=== PATIENT | female | born 1995 | race Caucasian/White ===

== ENCOUNTER 2017-03-04 11:20 | Inpatient (IN) | payer OTHER ==
[2017-03-04] MEDS: Lactated Ringers 1,000 ML IV SCH ×3 (12:00→17:54)
[2017-03-04] MEDS ORDERED: Misoprostol 25 MCG (1/4 of 100 MCG) Tab ONE (12:09)
[2017-03-04] MEDS: Misoprostol 25 MCG (1/4 of 100 MCG) Tab VAG SCH ×2 (12:12→15:23)
[2017-03-04] MEDS ORDERED: Lidocaine 1% 50 ML MDV INJECT ONE (12:19)
[2017-03-04] MEDS ORDERED: Sodium Chloride 0.9% 10 ML Syringe FLUSH PRN (12:19)
[2017-03-04] MEDS ORDERED: Ondansetron 4 MG/2 ML SDV IVPUSH PRN (12:19)
[2017-03-04] MEDS ORDERED: Nalbuphine 20 MG/1 ML Amp IVPUSH PRN (12:19)
--- NOTE | 2017-03-04 12:32 | PCM.LDHP ---
L&D History of Present Illness - General Date of Service: 03/04/17 Admit Problem/Dx: Patient Status Order with Admit Dx/Problem 03/04/17 12:23 Patient Status [ADT] Routine Admission Diagnosis/Problem Admission Diagnosis/Problem Source of Information: Patient History Limitations: Reports: No Limitations - History of Present Illness Introduction:: 21 y/o CATHRYN 03/08/17 EGA 39w3d. Seen in the clinic complaining of decreased movement. Nonstress test nonreactive. Acoustic stimulation was performed still nonreactive. Patient was sent to labor and delivery for nonstress test. NST in labor and delivery more reactivity than in the clinic. Patient is group B strep negative. Patient had been scheduled for induction later today will begin Cytotec today 25 g placed intravaginally at 1215 hrs. Plan Cytotec every 3 hours 10 3 doses and then began Pitocin. Blood type is O+ antibody screen negative hemoglobin hematocrit 07/26/1711.8/38.2 platelets 297, 000 Pap smear -04/03/16 rubella titer immune serology nonreactive hepatitis B surface antigen negative HIV negative GC and chlamydia probe negative on 12/20/16 hemoglobin hematocrit 12.3/36.7 platelets 257,001 hour OB glucose screen 189 and 3 hour fasting 85, 1 hour 159, two-hour 121, 3 hour 174 but the numbers should be fasting 85 1 hour 159 2 are 1793 hour 121. Admit for induction of labor and delivery. Previous delivery 11/28/2011 6 lbs. 15 oz. Improves with: Reports: None Worsens with: Reports: None Associated Symptoms: Reports: N - Related Data Allergies/Adverse Reactions: Allergies Allergy/AdvReac Type Severity Reaction Status Date / Time No Known Allergies Allergy Verified 05/08/16 13:04 Home Medications: Home Meds Clomid 50 mg PO ASDIRECTED 05/08/16 [History] Past Medical History HEENT History: Reports: Impaired Vision Other HEENT History: glasses Genitourinary History: Reports: UTI, Recurrent : 2 Para: 1 (1001) Musculoskeletal History: Reports: Fracture, Other (See Below) Other Musculoskeletal History: Carpal tunnel bilat Neurological History: Reports: Migraines - Past Surgical History HEENT Surgical History: Reports: Myringotomy w Tube(s) Social & Family History - Family History Family Medical History: Noncontributory - Tobacco Use Smoking Status *Q: Never Smoker - Caffeine Use Caffeine Use: Reports: None - Recreational Drug Use Recreational Drug Use: No H&P Review of Systems - Review of Systems: Review Of Systems: See Below General: Reports: No Symptoms HEENT: Reports: No Symptoms Pulmonary: Reports: No Symptoms Cardiovascular: Reports: No Symptoms Gastrointestinal: Reports: No Symptoms Genitourinary: Reports: No Symptoms Musculoskeletal: Reports: No Symptoms Skin: Reports: No Symptoms Psychiatric: Reports: No Symptoms Neurological: Reports: No Symptoms Hematologic/Lymphatic: Reports: No Symptoms Immunologic: Reports: No Symptoms L&D Exam - Exam Exam: See Below - OB Specific Fundal Height In cm: 40 Movement: Active Heart Tones: Present Heart Tones per Min: 135 Heart Rate (FHR) Variability: Moderate (6-25 bmp) Presentation: Vertex - Arreaga Score Arreaga Score Cervix Position: Posterior Arreaga Score Consistency: Soft Arreaga Score Effacement: 31-50% Arreaga Score Dilation: 1-2 cm Arreaga Score Infant's Station: -3 Arreaga Score Total: 4 - Exam General: Alert, Oriented HEENT: Conjunctiva Clear, Mucosa Moist & [place] Neck: Supple, Trachea Midline Lungs: Clear to Auscultation, Normal Respiratory Effort Cardiovascular: Regular Rate, Regular Rhythm GI/Abdominal Exam: Normal Bowel Sounds, Soft, Non-Tender, No Distention, No Abnormal Bruit Genitourinary: Normal external exam, Normal bimanual exam, Normal speculum exam Back Exam: Normal Inspection, Full Range of Motion Extremities: Normal Inspection, Normal Range of Motion, Non-Tender, No Pedal Edema, Normal Capillary Refill Skin: Warm, Dry, Intact Neurological: Reflexes Equal Bilateral Psychiatric: Alert, Normal Affect, Normal Mood - Problem List (1) 39 weeks gestation of SNOMED Code(s): 39769971 ICD Code: Z3A.39 - 39 WEEKS GESTATION OF Status: Acute Current Visit: Yes (2) Decreased movement affecting management of mother, antepartum SNOMED Code(s): 774578495 ICD Code: O36.8190 - DECREASED MOVEMENTS, UNSP TRIMESTER, UNSP Status : Acute Current Visit: Yes Qualifiers: Fetus number: single or unspecified fetus Qualified Code(s): O36.8190 - Decreased movements, unspecified trimester, not applicable or unspecified Problem List Initiated/Reviewed/Updated: No Orders Last 24hrs: Active Orders 24 hr Category Date Time Status Patient Status [ADT] Routine ADT 03/04/17 12:23 Active Activity as Tolerated [RC] PFP Care 03/04/17 12:22 Active Communication Order [RC] ASDIRECTED Care 03/04/17 12:22 Active Heart Tones [RC] ASDIRECTED Care 03/04/17 12:23 Active Notify Provider [RC] PFP Care 03/04/17 12:22 Active Notify Provider [RC] PRN Care 03/04/17 12:22 Active Peripheral IV Care [RC] . DIRECTED Care 03/04/17 12:23 Active Vital Signs [RC] PER UNIT ROUTINE Care 03/04/17 12:22 Active Regular Diet [DIET] Diet 03/04/17 Lunch Active CBC WITH AUTO DIFF [HEME] Stat Lab 03/04/17 12:19 Ordered Lactated Ringers [Ringers, Lactated] 1,000 ml Med 03/04/17 12:30 Active IV ASDIRECTED Misoprostol [Cytotec] Med 03/04/17 12:15 Active 25 mcg VAG Q3H Nalbuphine [Nubain] Med 03/04/17 12:19 Active 10 mg IVPUSH Q2H PRN Ondansetron [Zofran] Med 03/04/17 12:19 Active 4 mg IVPUSH Q4H PRN Oxytocin [Pitocin] 20 unit Med 03/04/17 12:30 Ordered Lactated Ringers [Ringers, Lactated] 1,000 ml IV TITRATE Sodium Chloride 0.9% [Saline Flush] Med 03/04/17 12:19 Active 10 ml FLUSH ASDIRECTED PRN Electronic Heart Tones Ext w TOCO [WOMSER] Oth 03/04/17 12:22 Ordered Routine Electronic Heart Tones Internal [WOMSER] Per Unit Oth 03/04/17 12:22 Ordered Routine Peripheral IV Insertion Adult [OM.PC] Routine Oth 03/04/17 12:22 Ordered Resuscitation Status Routine Resus Stat 03/04/17 12:19 Ordered Medication Orders Lactated Ringer's (Ringers, Lactated) 1,000 mls @ 100 mls/hr IV ASDIRECTED MICHAEL Oxytocin 20 unit/ Lactated (Ringer's) 1,002 mls @ 6.01 mls/hr IV TITRATE MICHAEL; 2 MUNITS/MIN PRN Reason: Protocol Misoprostol (Cytotec) 25 mcg VAG Q3H MICHAEL Stop: 03/04/17 18:16 Nalbuphine HCl (Nubain) 10 mg IVPUSH Q2H PRN PRN Reason: Pain (moderate 4-6) Ondansetron HCl (Zofran) 4 mg IVPUSH Q4H PRN PRN Reason: Nausea/Vomiting Sodium Chloride (Saline Flush) 10 ml FLUSH ASDIRECTED PRN PRN Reason: Keep Vein Open
[2017-03-04] MEDS ORDERED: fentaNYL 100 MCG/2 ML SDV EPIDUR PRN (13:07)
[2017-03-04] MEDS ORDERED: ePHEDrine 50 MG/ML SDV IVPUSH PRN (13:07)
[2017-03-04] MEDS ORDERED: diphenhydrAMINE 50 MG/ML SDV IVPUSH PRN (13:07)
--- NOTE | 2017-03-04 13:14 | PCM.PREANE ---
Preanesthetic Assessment - Anesthesia/Transfusion/Family Hx Anesthesia History: Prior Anesthesia Without Reaction Family History of Anesthesia Reaction: No Transfusion History: No Prior Transfusion(s) - Review of Systems General: No Symptoms Pulmonary: No Symptoms Cardiovascular: No Symptoms Gastrointestinal: No Symptoms Neurological: No Symptoms Other: Reports: None - Physical Assessment Pulse: 87 O2 Sat by Pulse Oximetry: 98 Respiratory Rate: 20 Blood Pressure: 132/82 Temperature: 98.1 F Height: 5 ft 4 in Weight: 109.316 kg ASA Class: 2 Mental Status: Alert & Oriented x3 Airway Class: Mallampati = 1 Dentition: Reports: Normal Dentition Thyro-Mental Finger Breadths: 3 Mouth Opening Finger Breadths: 3 ROM/Head Extension: Full Lungs: Clear to Auscultation, Normal Respiratory Effort Cardiovascular: Regular Rate, Regular Rhythm - Lab Values: Laboratory Last Values WBC 12.54 K/mm3 (3.98-10.04) H 03/04/17 12:45 RBC 3.87 M/mm3 (3.98-5.22) L 03/04/17 12:45 Hgb 11.9 gm/L (11.2-15.7) 03/04/17 12:45 Hct 35.6 % (34.1-44.9) 03/04/17 12:45 MCV 92.0 fl (79.4-94.8) 03/04/17 12:45 MCH 30.7 pg (25.6-32.2) 03/04/17 12:45 MCHC 33.4 g/dl (32.2-35.5) 03/04/17 12:45 RDW Std Deviation 46.1 fL (36.4-46.3) 03/04/17 12:45 Plt Count 200 K/mm3 (182-369) 03/04/17 12:45 MPV 11.1 fl (9.4-12.3) 03/04/17 12:45 Neut % (Auto) 74.9 % (34.0-71.1) H 03/04/17 12:45 Lymph % (Auto) 13.8 % (19.3-51.7) L 03/04/17 12:45 [place] % (Auto) 8.5 % (4.7-12.5) 03/04/17 12:45 Eos % (Auto) 2.2 (0.7-5.8) 03/04/17 12:45 Baso % (Auto) 0.2 % (0.1-1.2) 03/04/17 12:45 Neut # (Auto) 9.41 K/mm3 (1.56-6.13) H 03/04/17 12:45 Lymph # (Auto) 1.73 K/mm3 (1.18-3.74) 03/04/17 12:45 [place] # (Auto) 1.06 K/mm3 (0.24-0.36) H 03/04/17 12:45 Eos # (Auto) 0.27 K/mm3 (0.04-0.36) 03/04/17 12:45 Baso # (Auto) 0.02 K/mm3 (0.01-0.08) 03/04/17 12:45 - Allergies Allergies/Adverse Reactions: Allergies Allergy/AdvReac Type Severity Reaction Status Date / Time No Known Allergies Allergy Verified 05/08/16 13:04 - Blood Blood Available: No - Acknowledgements Anesthesia Type Planned: Epidural Pt an Appropriate Candidate for the Planned Anesthesia: Yes Alternatives and Risks of Anesthesia Discussed w Pt/Guardian: Yes Pt/Guardian Understands and Agrees with Anesthesia Plan: Yes PreAnesthesia Questionnaire HEENT History: Reports: Impaired Vision Other HEENT History: glasses Cardiovascular History: Reports: None Respiratory History: Reports: None Genitourinary History: Reports: UTI, Recurrent : 2 (39 weeks plus 3) Para: 1 Musculoskeletal History: Reports: Fracture, Other (See Below) Other Musculoskeletal History: Carpal tunnel bilat Neurological History: Reports: Migraines - Past Surgical History HEENT Surgical History: Reports: Myringotomy w Tube(s) GI Surgical History: Reports: Cholecystectomy, Colonoscopy, EGD Oncologic Surgical History: Reports: Biopsy of Breast - History Comment History Comment: vits - SUBSTANCE USE Smoking Status *Q: Never Smoker Tobacco Use Within Last Twelve Months: No Second Hand Smoke Exposure: No Days Per Week of Alcohol Use: 0 (occasional prior to preg) Recreational Drug Use History: No - HOME MEDS Home Medications: Home Meds Clomid 50 mg PO ASDIRECTED 05/08/16 [History] - CURRENT (IN HOUSE) MEDS Current Meds: Current Medications Diphenhydramine HCl (Benadryl) 25 mg IVPUSH Q6H PRN PRN Reason: pruritis Ephedrine Sulfate (Ephedrine Sulfate) 5 mg IVPUSH ASDIRECTED PRN PRN Reason: Hypotension Fentanyl (Sublimaze) 100 mcg EPIDUR Q3H PRN PRN Reason: Pain Fentanyl/Bupivacaine HCl (Fentanyl/Bupivacaine/Ns 2 Mcg-0.125% 100 Ml) 100 ml EPIDUR ASDIRECTED MICHAEL Lactated Ringer's (Ringers, Lactated) 1,000 mls @ 100 mls/hr IV ASDIRECTED MICHAEL Oxytocin 20 unit/ Lactated (Ringer's) 1,002 mls @ 6.01 mls/hr IV TITRATE MICHAEL; 2 MUNITS/MIN PRN Reason: Protocol Misoprostol (Cytotec) 25 mcg VAG Q3H MICHAEL Stop: 03/04/17 18:16 Nalbuphine HCl (Nubain) 10 mg IVPUSH Q2H PRN PRN Reason: Pain (moderate 4-6) Ondansetron HCl (Zofran) 4 mg IVPUSH Q4H PRN PRN Reason: Nausea/Vomiting Sodium Chloride (Saline Flush) 10 ml FLUSH ASDIRECTED PRN PRN Reason: Keep Vein Open Discontinued Medications Lidocaine HCl (Xylocaine 1%) 50 ml INJECT ONETIME ONE Stop: 03/04/17 12:20 Misoprostol (Cytotec) Confirm Administered Dose 25 mcg .ROUTE .STK-MED ONE Stop: 03/04/17 12:10 Last Admin: 03/04/17 12:26 Dose: Not Given
[2017-03-04] MEDS ORDERED: Bupivacaine/fentaNYL/NS 100 ML Bag EPIDUR SCH (13:15)
[2017-03-04] MEDS ORDERED: Diphtheria,Pertussis(Acell),Tetanus Vaccine 0.5 ML SDV IM ONE (14:44)
[2017-03-04] MEDS ORDERED: FLU Vacc QS 2017-18 (6mos UP)/PF 60 MCG/0.5 ML Syringe IM ONE (15:00)
--- NOTE | 2017-03-04 16:11 | PCM.SN ---
- Free Text/Narrative Note: Cervix 3 cm, 70% effaced, soft, posterior, vertex-1. Cat I FHR. Amniotomy performed at 1606 clear fluid. Cat I FHR after amniotomy.
--- NOTE | 2017-03-04 22:00 | PCM.SN ---
- Free Text/Narrative Note: Right nigel-lateral rim 9 cm, 100%, soft, anterior, vertex 0 station to 1+ station. Cat I FHR. Contractions q1-3 minutes.
[2017-03-04] MEDS ORDERED: Bupivacaine 0.25% 10 ML SDV ONE (22:22)
--- NOTE | 2017-03-04 22:35 | PCM.DEL ---
L & D Note - General Info Date of Service: 03/04/17 Mother's Due Date: 03/08/17 - Delivery Note Labor: Augmented by ARM Cervical Ripening Method: Misoprostil (25 g 23 hours part.) Delivery Outcome: Livebirth (Male liveborn 2221 hrs. Saturday03/04/17 PARVEEN Apgars 8/9 at one and 5 minutes respectively weight 30/8/30 grams 8 pounds 7.1 ounces) Delivery Method: Spontaneous Vaginal Delivery-Single Infant Delivery Mode: Spontaneous Presentation: Left Occiput Anterior (PARVEEN) Nuchal Cord: None Prep: Povidone-Iodine (Betadine Anesthesia Type: Epidural Amniotic Fluid Description: Clear Episiotomy Type: None Laceration: None Placenta: Intact, Spontaneous (Placenta Willian spontaneous 2224 hrs. examined intact discarded central cord insertion) Cord: 3 Vessels Estimated Blood Loss: 200 Resuscitation Needed: No [place]: Suctioned, Bulb Syringe, Stimulated, Warmed, [place] Used, Warmer Used Provider: Rosales Yañez Score 1 min: 8 Score 5 min: 9 - Patient Data Vitals - Most Recent: Last Vital Signs Temp 98.1 F 03/04/17 13:15 Pulse 87 03/04/17 13:15 Resp 20 03/04/17 13:15 BP 132/82 03/04/17 13:15 Pulse Ox 98 03/04/17 13:15 Weight - Most Recent: 241 lb Lab Results Last 24 Hours: Laboratory Results - last 24 hr 03/04/17 Range/Units 12:45 WBC 12.54 H (3.98-10.04) K/mm3 RBC 3.87 L (3.98-5.22) M/mm3 Hgb 11.9 (11.2-15.7) gm/L Hct 35.6 (34.1-44.9) % MCV 92.0 (79.4-94.8) fl MCH 30.7 (25.6-32.2) pg MCHC 33.4 (32.2-35.5) g/dl RDW Std Deviation 46.1 (36.4-46.3) fL Plt Count 200 (182-369) K/mm3 MPV 11.1 (9.4-12.3) fl Neut % (Auto) 74.9 H (34.0-71.1) % Lymph % (Auto) 13.8 L (19.3-51.7) % [place] % (Auto) 8.5 (4.7-12.5) % Eos % (Auto) 2.2 (0.7-5.8) Baso % (Auto) 0.2 (0.1-1.2) % Neut # (Auto) 9.41 H (1.56-6.13) K/mm3 Lymph # (Auto) 1.73 (1.18-3.74) K/mm3 [place] # (Auto) 1.06 H (0.24-0.36) K/mm3 Eos # (Auto) 0.27 (0.04-0.36) K/mm3 Baso # (Auto) 0.02 (0.01-0.08) K/mm3 Med Orders - Current: Current Medications Diphenhydramine HCl (Benadryl) 25 mg IVPUSH Q6H PRN PRN Reason: pruritis Ephedrine Sulfate (Ephedrine Sulfate) 5 mg IVPUSH ASDIRECTED PRN PRN Reason: Hypotension Fentanyl (Sublimaze) 100 mcg EPIDUR Q3H PRN PRN Reason: Pain Last Admin: 03/04/17 17:42 Dose: 100 mcg Fentanyl/Bupivacaine HCl (Fentanyl/Bupivacaine/Ns 2 Mcg-0.125% 100 Ml) 100 ml EPIDUR ASDIRECTED MICHAEL Last Admin: 03/04/17 17:42 Dose: 100 ml Lactated Ringer's (Ringers, Lactated) 1,000 mls @ 100 mls/hr IV ASDIRECTED MICHAEL Last Admin: 03/04/17 17:54 Dose: 125 mls/hr Oxytocin 20 unit/ Lactated (Ringer's) 1,002 mls @ 6.01 mls/hr IV TITRATE MICHAEL; 2 MUNITS/MIN PRN Reason: Protocol Nalbuphine HCl (Nubain) 10 mg IVPUSH Q2H PRN PRN Reason: Pain (moderate 4-6) Ondansetron HCl (Zofran) 4 mg IVPUSH Q4H PRN PRN Reason: Nausea/Vomiting Sodium Chloride (Saline Flush) 10 ml FLUSH ASDIRECTED PRN PRN Reason: Keep Vein Open Discontinued Medications Diphtheria/Tetanus/Acell Pertussis (Adacel) 0.5 ml IM .ONCE ONE Stop: 03/04/17 14:45 Influenza Virus Vaccine (Pharmacy To Dose - Influenza Vaccine) 1 each IM ONETIME ONE Stop: 03/04/17 14:45 Influenza Virus Vaccine (Flulaval Quad [id number]) 60 mcg IM .ONCE ONE Stop: 03/04/17 15:01 Lidocaine HCl (Xylocaine 1%) 50 ml INJECT ONETIME ONE Stop: 03/04/17 12:20 Misoprostol (Cytotec) Confirm Administered Dose 25 mcg .ROUTE .STK-MED ONE Stop: 03/04/17 12:10 Last Admin: 03/04/17 12:26 Dose: Not Given Misoprostol (Cytotec) 25 mcg VAG Q3H MICHAEL Stop: 03/04/17 18:16 Last Admin: 03/04/17 15:23 Dose: 25 mcg - Problem List & Annotations (1) 39 weeks gestation of SNOMED Code(s): 68121478 Code(s): Z3A.39 - 39 WEEKS GESTATION OF Status: Acute Current Visit: Yes (2) Decreased movement affecting management of mother, antepartum SNOMED Code(s): 674145400 Code(s): O36.8190 - DECREASED MOVEMENTS, UNSP TRIMESTER, UNSP Status : Acute Current Visit: Yes Qualifiers: Fetus number: single or unspecified fetus Qualified Code(s): O36.8190 - Decreased movements, unspecified trimester, not applicable or unspecified (3) Encounter for full-term uncomplicated delivery SNOMED Code(s): 84925053 Code(s): O80 - ENCOUNTER FOR FULL-TERM UNCOMPLICATED DELIVERY Status: Acute Current Visit: Yes - Problem List Review Problem List Initiated/Reviewed/Updated: No - My Orders Last 24 Hours: My Active Orders 03/04/17 12:19 Nalbuphine [Nubain] 10 mg IVPUSH Q2H PRN Ondansetron [Zofran] 4 mg IVPUSH Q4H PRN Sodium Chloride 0.9% [Saline Flush] 10 ml FLUSH ASDIRECTED PRN Resuscitation Status Routine 03/04/17 12:22 Activity as Tolerated [RC] PFP Communication Order [RC] ASDIRECTED Notify Provider [RC] PFP Notify Provider [RC] PRN Vital Signs [RC] PER UNIT ROUTINE Electronic Heart Tones Ext w TOCO [WOMSER] Routine Electronic Heart Tones Internal [WOMSER] Per Unit Routine Peripheral IV Insertion Adult [OM.PC] Routine 03/04/17 12:23 Patient Status [ADT] Routine Heart Tones [RC] ASDIRECTED Peripheral IV Care [RC] Q2HR 03/04/17 12:30 Lactated Ringers [Ringers, Lactated] 1,000 ml IV ASDIRECTED Oxytocin [Pitocin] 20 unit Lactated Ringers [Ringers, Lactated] 1,000 ml IV TITRATE 03/04/17 14:45 Vaccines to be Administered [RC] PER UNIT ROUTINE 03/04/17 Lunch Regular Diet [DIET]
[2017-03-04] MEDS ORDERED: Acetaminophen 325 MG Tab PO PRN (22:39)
[2017-03-04] MEDS ORDERED: Benzocaine/Menthol 20%-0.5% Spray 56 GM Canister TOP PRN (22:39)
[2017-03-04] MEDS ORDERED: Witch Hazel Medicated Pads 100/Jar TOP PRN (22:39)
[2017-03-04] MEDS ORDERED: Docusate Sodium 100 MG Cap PO PRN (22:39)
[2017-03-04] MEDS ORDERED: Lanolin 100% Cream 7 GM Tube TOP PRN (22:39)
[2017-03-04] MEDS: Ibuprofen 600 MG Tab PO PRN (23:46)
[2017-03-05] MEDS: Misoprostol 25 MCG (1/4 of 100 MCG) Tab VAG SCH (02:24)
[2017-03-05] MEDS: Ibuprofen 600 MG Tab PO PRN ×2 (06:58→15:07)
[2017-03-05] MEDS: Prenatal Multivitamin with Calcium/Folic Acid/Iron Tab PO SCH (09:53)
--- NOTE | 2017-03-05 10:42 | PCM.SN ---
- Free Text/Narrative Note: day 1 Afebrile, chest clear. No abnormal heart sounds. Abdomen is soft, uterus involuting normally at U -1. No heavy vaginal bleeding. No leg cramping. Probably home tomorrow.
--- NOTE | 2017-03-05 11:46 | PCM48HPAN ---
Post Anesthesia Note - EVALUATION WITHIN 48HRS OF ANESTHETIC Vital Signs in Normal Range: Yes Patient Participated in Evaluation: Yes Respiratory Function Stable: Yes Airway Patent: Yes Cardiovascular Function Stable: Yes Hydration Status Stable: Yes Pain Control Satisfactory: Yes Nausea and Vomiting Control Satisfactory: Yes Mental Status Recovered: Yes - COMMENTS/OBSERVATIONS Free Text/Narrative:: Patient denied any headaches, residual numbness/ tingling to LE, or back pain.
[2017-03-06 06:26] VITALS: BP 119/68
[2017-03-06] MEDS: Prenatal Multivitamin with Calcium/Folic Acid/Iron Tab PO SCH (10:10)
[2017-03-06] MEDS: Ibuprofen 600 MG Tab PO PRN (10:10)
--- NOTE | 2017-03-06 10:11 | PCM.SN ---
- Free Text/Narrative Note: Post Progress Note PPD # 2 Subjective: Doing well overall. Ambulating without difficulty. Lochia minimal. Voiding without difficulty. Tolerating regular diet. Pain controlled with oral medications. Breast feeding with minimal difficulty. Objective: Vitals: Last Vital Signs Temp 36.6 C 03/06/17 03:34 Pulse 83 03/06/17 03:34 Resp 15 03/06/17 03:34 BP 119/68 03/06/17 03:34 Pulse Ox 99 03/06/17 03:34 Physical Exam General: Alert and oriented, no acute distress Lungs: Clear to auscultation bilaterally Heart: Regular rate and rhythm Abdomen: Soft, minimal appropriate tenderness, non-distended, fundus midline, nontender, and below the umbilicus Extremities: No edema ASSESSMENT: 29-year-old female G2 P 2002 s/p normal vaginal delivery PPD #2 PLAN: Doing well Breast feeding with minimal difficulty. Assist as needed Lochia minimal. Continue to monitor for appropriate lochia. Continue routine care Anticipate discharge home today Jason Hager MD 10:10 AM 03/06/17
--- NOTE | 2017-03-06 10:32 | PCM.DCSUM1 ---
Discharge Summary - Hospital Course Free Text/Narrative:: Labor: Augmented by ARM Cervical Ripening Method: Misoprostil (25 g 23 hours part.) Delivery Outcome: Livebirth (Male liveborn 2221 hrs. Saturday03/04/17 PARVEEN Apgars 8/9 at one and 5 minutes respectively weight 30/8/30 grams 8 pounds 7.1 ounces) Infant Delivery Method: Spontaneous Vaginal Delivery-Single Infant Delivery Mode: Spontaneous Presentation: Left Occiput Anterior (PARVEEN) Nuchal Cord: None Prep: Povidone-Iodine (Betadine Anesthesia Type: Epidural Amniotic Fluid Description: Clear Episiotomy Type: None Laceration: None Placenta: Intact, Spontaneous (Placenta Willian spontaneous 4 hrs. examined intact discarded central cord insertion) Cord: 3 Vessels Estimated Blood Loss: 200 Resuscitation Needed: No [place]: Suctioned, Bulb Syringe, Stimulated, Warmed, [place] Used, Warmer Used Provider: Rosales Yañez Score 1 min: 8 Score 5 min: 9 HPI Initial Comments: Labor: Augmented by ARM Cervical Ripening Method: Misoprostil (25 g 23 hours part.) Delivery Outcome: Livebirth (Male liveborn 2221 hrs. Saturday03/04/17 PARVEEN Apgars 8/9 at one and 5 minutes respectively weight 30/8/30 grams 8 pounds 7.1 ounces) Infant Delivery Method: Spontaneous Vaginal Delivery-Single Infant Delivery Mode: Spontaneous Presentation: Left Occiput Anterior (PARVEEN) Nuchal Cord: None Prep: Povidone-Iodine (Betadine Anesthesia Type: Epidural Amniotic Fluid Description: Clear Episiotomy Type: None Laceration: None Placenta: Intact, Spontaneous (Placenta Willian spontaneous 4 hrs. examined intact discarded central cord insertion) Cord: 3 Vessels Estimated Blood Loss: 200 Resuscitation Needed: No [place]: Suctioned, Bulb Syringe, Stimulated, Warmed, [place] Used, Warmer Used Provider: Rosales Yañez Score 1 min: 8 Score 5 min: 9 Brief History: Labor: Augmented by ARM. Cervical Ripening Method: Misoprostil ( 25 g 23 hours part.). Delivery Outcome: Livebirth (Male liveborn 2221 hrs. Saturday03/04/17 PARVEEN Apgars 8/9 at one and 5 minutes respectively weight 30/8/30 grams 8 pounds 7.1 ounces). Infant Delivery Method: Spontaneous Vaginal Delivery-Single. Delivery Mode: Spontaneous. Presentation: Left Occiput Anterior (PARVEEN). Nuchal Cord: None. Prep: Povidone-Iodine (Betadine. Anesthesia Type: Epidural. Amniotic Fluid Description: Clear. Episiotomy Type : None. Laceration: None. Placenta: Intact, Spontaneous (Placenta Willian spontaneous 2224 hrs. examined intact discarded central cord insertion). Cord: 3 Vessels. Estimated Blood Loss: 200. Resuscitation Needed: No. [place]: Suctioned, Bulb Syringe, Stimulated, Warmed, [place] Used, Warmer Used. Provider: Rosales Yañez. Score 1 min: 8. Score 5 min : 9 - Discharge Data Discharge Date: 03/06/17 Discharge Disposition: Home, Self-Care 01 Condition: Good - Discharge Diagnosis/Problem(s) (1) (normal spontaneous vaginal delivery) SNOMED Code(s): 18165913 ICD Code: O80 - ENCOUNTER FOR FULL-TERM UNCOMPLICATED DELIVERY Status: Acute Current Visit: Yes (2) 39 weeks gestation of SNOMED Code(s): 89799610 ICD Code: Z3A.39 - 39 WEEKS GESTATION OF Status: Acute Current Visit: Yes (3) Decreased movement affecting management of mother, antepartum SNOMED Code(s): 884996376 ICD Code: O36.8190 - DECREASED MOVEMENTS, UNSP TRIMESTER, UNSP Status : Acute Current Visit: Yes Qualifiers: Fetus number: single or unspecified fetus Qualified Code(s): O36.8190 - Decreased movements, unspecified trimester, not applicable or unspecified - Patient Summary/Data Complications: None Consults: None Hospital Course: Labor: Augmented by ARM Cervical Ripening Method: Misoprostil (25 g 23 hours part.) Delivery Outcome: Livebirth (Male liveborn 2221 hrs. Saturday03/04/17 PARVEEN Apgars 8/9 at one and 5 minutes respectively weight 30/8/30 grams 8 pounds 7.1 ounces) Infant Delivery Method: Spontaneous Vaginal Delivery-Single Delivery Mode: Spontaneous Presentation: Left Occiput Anterior (PARVEEN) Nuchal Cord: None Prep: Povidone-Iodine (Betadine Anesthesia Type: Epidural Amniotic Fluid Description: Clear Episiotomy Type: None Laceration: None Placenta: Intact, Spontaneous (Placenta Willian spontaneous 2224 hrs. examined intact discarded central cord insertion) Cord: 3 Vessels Estimated Blood Loss: 200 Resuscitation Needed: No [place]: Suctioned, Bulb Syringe, Stimulated, Warmed, [place] Used, Warmer Used Provider: Rosales Yañez Score 1 min: 8 Score 5 min: 9 Patient was doing well on day #1 and meeting milestones including ambulating, tolerating regular diet, voiding without difficulty and her pain was controlled with oral medications. She continued to do well and was meeting milestones on postoperative day #2. She desired be discharged home on day #2. She will follow up with Dr. Yañez in the office in 2 weeks or earlier as needed for her check. - Patient Instructions Diet: Regular Diet as Tolerated Activity: As Tolerated Activity, Other: Nothing in the vagina for 6 weeks Driving: May Drive Today Showering/Bathing: May Shower, No Tub Bathing/Swimming (For 6 weeks) Notify Provider of: Fever, Increased Pain, Swelling and Redness, Drainage, Nausea and/or Vomiting - Discharge Plan Home Medications: Home Meds PNV95/Ferrous Fumarate/FA [ Vitamin Tablet] 1 tab PO DAILY 03/04/17 [ History] Acetaminophen [Tylenol] 650 mg PO Q4H PRN tablet 03/06/17 [Rx] Benzocaine/Menthol [Dermoplast Pain Relief [place]] 1 spray TOP ASDIRECTED PRN canister 03/06/17 [Rx] Docusate Sodium [Colace] 100 mg PO BID PRN cap 03/06/17 [Rx] Ibuprofen [IJD: Ibuprofen] 600 mg PO Q6H PRN tablet 03/06/17 [Rx] Lanolin [Lansinoh HPA] 1 applic TOP ASDIRECTED PRN tube 03/06/17 [Rx] Witch Zara [Tucks] 1 pad TOP ASDIRECTED PRN pad 03/06/17 [Rx] Patient Handouts: Vaginal Delivery, Home Care Instructions for Mom, Vaginal Delivery, Care After, Pelvic Rest, Care After Vaginal Delivery Referrals: Rosales Yañez MD [Physician] - (Follow-up in 2 weeks for visit. ) - Discharge Summary/Plan Comment DC Time >30 min.: No - Patient Data Vitals - Most Recent: Last Vital Signs Temp 36.6 C 03/06/17 03:34 Pulse 83 03/06/17 03:34 Resp 15 03/06/17 03:34 BP 119/68 03/06/17 03:34 Pulse Ox 99 03/06/17 03:34 Weight - Most Recent: 109.316 kg Med Orders - Current: Current Medications Acetaminophen (Tylenol) 650 mg PO Q4H PRN PRN Reason: mild pain or fever Benzocaine/Menthol (Dermoplast Pain Relief [place]) 0 gm TOP ASDIRECTED PRN PRN Reason: Perineal Comfort Measure Last Admin: 03/04/17 23:45 Dose: 1 canister Docusate Sodium (Colace) 100 mg PO BID PRN PRN Reason: Constipation Last Admin: 03/05/17 18:30 Dose: 100 mg Emollient Ointment (Lansinoh Hpa) 0 gm TOP ASDIRECTED PRN PRN Reason: Sore Nipples Ibuprofen (Motrin) 600 mg PO Q4H PRN PRN Reason: Mild pain or fever Last Admin: 03/06/17 10:10 Dose: 600 mg Prenat Multivit/[place]/Iron/Folic Ac ( Plus Iron) 1 each PO DAILY MICHAEL Last Admin: 03/06/17 10:10 Dose: 1 each Witch Zara (Tucks) 1 pad TOP ASDIRECTED PRN PRN Reason: Hemorrhoid pain Last Admin: 03/04/17 23:45 Dose: 1 tub Discontinued Medications Bupivacaine HCl (Sensorcaine-Mpf 0.25%) 10 ml .ROUTE .STK-MED ONE Stop: 03/04/17 22:23 Diphenhydramine HCl (Benadryl) 25 mg IVPUSH Q6H PRN PRN Reason: pruritis Diphtheria/Tetanus/Acell Pertussis (Adacel) 0.5 ml IM .ONCE ONE Stop: 03/04/17 14:45 Ephedrine Sulfate (Ephedrine Sulfate) 5 mg IVPUSH ASDIRECTED PRN PRN Reason: Hypotension Fentanyl (Sublimaze) 100 mcg EPIDUR Q3H PRN PRN Reason: Pain Last Admin: 03/04/17 17:42 Dose: 100 mcg Fentanyl/Bupivacaine HCl (Fentanyl/Bupivacaine/Ns 2 Mcg-0.125% 100 Ml) 100 ml EPIDUR ASDIRECTED MICHAEL Last Admin: 03/04/17 17:42 Dose: 100 ml Lactated Ringer's (Ringers, Lactated) 1,000 mls @ 100 mls/hr IV ASDIRECTED MICHAEL Last Admin: 03/04/17 17:54 Dose: 125 mls/hr Oxytocin 20 unit/ Lactated (Ringer's) 1,002 mls @ 6.01 mls/hr IV TITRATE MICHAEL; 2 MUNITS/MIN PRN Reason: Protocol Last Admin: 03/04/17 22:54 Dose: 2 munits/min, 6.01 mls/hr Influenza Virus Vaccine (Pharmacy To Dose - Influenza Vaccine) 1 each IM ONETIME ONE Stop: 03/04/17 14:45 Influenza Virus Vaccine (Flulaval Quad [id number]) 60 mcg IM .ONCE ONE Stop: 03/04/17 15:01 Lidocaine HCl (Xylocaine 1%) 50 ml INJECT ONETIME ONE Stop: 03/04/17 12:20 Last Admin: 03/05/17 02:24 Dose: Not Given Misoprostol (Cytotec) Confirm Administered Dose 25 mcg .ROUTE .STK-MED ONE Stop: 03/04/17 12:10 Last Admin: 03/04/17 12:26 Dose: Not Given Misoprostol (Cytotec) 25 mcg VAG Q3H MICHAEL Stop: 03/04/17 18:16 Last Admin: 03/05/17 02:24 Dose: Not Given Nalbuphine HCl (Nubain) 10 mg IVPUSH Q2H PRN PRN Reason: Pain (moderate 4-6) Ondansetron HCl (Zofran) 4 mg IVPUSH Q4H PRN PRN Reason: Nausea/Vomiting Sodium Chloride (Saline Flush) 10 ml FLUSH ASDIRECTED PRN PRN Reason: Keep Vein Open *Q Meaningful Use (DIS) - VTE *Q VTE Criteria *Q: - Stroke *Q Stroke Criteria *Q: - AMI *Q AMI Criteria *Q:
== END 2017-03-06 17:30 | disposition home or self-care (01) | DRG 775 ==
LOC: JD.OB 11:20 → JD.OBCHECK 11:20 → JD.OB 12:23 → OBSVTOIN 22:21
PROVIDERS: ADMIT Obstetrics & Gynecology; ATTEND Obstetrics & Gynecology
PROC: 10E0XZZ Delivery of Products of Conception, External Approach (ICD-10-PCS; principal; 2017-03-04)
PROC: 3E0P7VZ Introduction of Hormone into Female Reproductive, Via Natural or Artificial Opening (ICD-10-PCS; 2017-03-04)
PROC: 10907ZC Drainage of Amniotic Fluid, Therapeutic from Products of Conception, Via Natural or Artificial Opening (ICD-10-PCS; 2017-03-04)
PROC: 00HU33Z Insertion of Infusion Device into Spinal Canal, Percutaneous Approach (ICD-10-PCS; 2017-03-04)
PROC: 3E0R3BZ Introduction of Anesthetic Agent into Spinal Canal, Percutaneous Approach (ICD-10-PCS; 2017-03-04)
PROC: 3E0234Z Introduction of Serum, Toxoid and Vaccine into Muscle, Percutaneous Approach (ICD-10-PCS; 2017-03-06)
DX: O36.8130 Decreased fetal movements, third trimester, not applicable or unspecified (principal); Z37.0 Single live birth; Z3A.39 39 weeks gestation of pregnancy; Z23 Encounter for immunization; Z34.93 Encounter for supervision of normal pregnancy, unspecified, third trimester
CPT/HCPCS: 01967; 36415; 51702; 59409; 81003; 85025; 90686; 90715; A9270-GY; G0008; J2590; J3010; J7120

== ENCOUNTER 2018-05-15 06:23 | Day surgery (SDC) | payer OTHER ==
[~2018-05-15 06:23] MED LIST: Lactated Ringers 1,000 ML IV SCH; Lidocaine 1%/Sod Bicarbonate in NS 8.4% 1 ML Syringe IDERM PRN; Sodium Chloride 0.9% 10 ML Syringe FLUSH PRN
[2018-05-15] MEDS ORDERED: Ondansetron 4 MG/2 ML SDV ONE (07:11)
[2018-05-15] MEDS ORDERED: Rocuronium 50 MG/5 ML Vial ONE (07:11)
[2018-05-15] MEDS ORDERED: Propofol 200 MG/20 ML SDV ONE (07:11)
[2018-05-15] MEDS ORDERED: fentaNYL 100 MCG/2 ML SDV ONE (07:11)
[2018-05-15] MEDS ORDERED: Lidocaine 1% 4 ML ONE (07:12)
[2018-05-15] MEDS ORDERED: Midazolam 1 MG/ML 2 ML SDV ONE (07:12)
--- NOTE | 2018-05-15 07:30 | PCM.PREANE ---
Preanesthetic Assessment - Anesthesia/Transfusion/Family Hx Anesthesia History: Prior Anesthesia Without Reaction Family History of Anesthesia Reaction: No Transfusion History: No Prior Transfusion(s) - Review of Systems General: No Symptoms Pulmonary: No Symptoms Cardiovascular: No Symptoms Gastrointestinal: Abdominal Pain (cramping), Nausea Neurological: No Symptoms Other: Reports: None - Physical Assessment NPO Status Date: 05/14/18 NPO Status Time: 00:00 Pulse: 81 O2 Sat by Pulse Oximetry: 100 Respiratory Rate: 16 Blood Pressure: 128/77 Temperature: 36.8 C Height: 1.65 m Weight: 98.293 kg ASA Class: 2 Mental Status: Alert & Oriented x3 Airway Class: Mallampati = 1 Dentition: Reports: Normal Dentition Thyro-Mental Finger Breadths: 3 Mouth Opening Finger Breadths: 3 ROM/Head Extension: Full Lungs: Clear to Auscultation, Normal Respiratory Effort, Decreased Breath Sounds - Allergies Allergies/Adverse Reactions: Allergies Allergy/AdvReac Type Severity Reaction Status Date / Time No Known Allergies Allergy Verified 04/29/18 17:21 - Anesthesia Plan Pre-Op Medication Ordered: None - Acknowledgements Pt an Appropriate Candidate for the Planned Anesthesia: Yes Alternatives and Risks of Anesthesia Discussed w Pt/Guardian: Yes Pt/Guardian Understands and Agrees with Anesthesia Plan: Yes PreAnesthesia Questionnaire HEENT History: Reports: Impaired Vision Other HEENT History: glasses Cardiovascular History: Reports: None Respiratory History: Reports: None Genitourinary History: Reports: UTI, Recurrent [employer]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: Musculoskeletal History: Reports: Fracture, Other (See Below) Other Musculoskeletal History: Carpal tunnel bilat Neurological History: Reports: Migraines - Past Surgical History HEENT Surgical History: Reports: Myringotomy w Tube(s) GI Surgical History: Reports: Cholecystectomy, Colonoscopy, EGD Oncologic Surgical History: Reports: Biopsy of Breast - History Comment History Comment: vits - SUBSTANCE USE Smoking Status *Q: Former Smoker Tobacco Use Within Last Twelve Months: No Second Hand Smoke Exposure: No Days Per Week of Alcohol Use: 1 Number of Drinks Per Day: 0 Total Drinks Per Week: 0 Recreational Drug Use History: No - HOME MEDS Home Medications: Home Meds PNV95/Ferrous Fumarate/FA [ Vitamin Tablet] 1 tab PO DAILY 03/04/17 [ History] Docusate Sodium [Colace] 100 mg PO BID PRN cap 03/06/17 [Rx] Ibuprofen [IJD: Ibuprofen] 600 mg PO Q6H PRN tablet 03/06/17 [Rx] - CURRENT (IN HOUSE) MEDS Current Meds: Current Medications Lactated Ringer's (Ringers, Lactated) 1,000 mls @ 125 mls/hr IV ASDIRECTED MICHAEL Lidocaine/Sodium Bicarbonate (Buffered Lidocaine 1% In Ns 8.4%) 0.25 ml IDERM ONETIME PRN PRN Reason: Prior to IV Start Sodium Chloride (Saline Flush) 10 ml FLUSH ASDIRECTED PRN PRN Reason: Keep Vein Open Discontinued Medications Fentanyl (Sublimaze) Confirm Administered Dose 100 mcg .ROUTE .STK-MED ONE Stop: 05/15/18 07:12 Lidocaine HCl (Xylocaine-Mpf 1%) Confirm Administered Dose 4 mls @ as directed .ROUTE .STK-MED ONE Stop: 05/15/18 07:13 Midazolam HCl (Versed 1 Mg/Ml) Confirm Administered Dose 2 mg .ROUTE .STK-MED ONE Stop: 05/15/18 07:13 Ondansetron HCl (Zofran) Confirm Administered Dose 4 mg .ROUTE .STK-MED ONE Stop: 05/15/18 07:12 Propofol (Diprivan 20 Ml) Confirm Administered Dose 200 mg .ROUTE .STK-MED ONE Stop: 05/15/18 07:12 Rocuronium [place] (Zemuron) Confirm Administered Dose 50 mg .ROUTE .STK-MED ONE Stop: 05/15/18 07:12
[2018-05-15] MEDS ORDERED: ceFAZolin 1 GM Vial ONE (07:41)
[2018-05-15] MEDS ORDERED: Ketorolac 30 MG/ML SDV ONE (07:56)
[2018-05-15] MEDS ORDERED: Oxytocin 10 Units/1 ML SDV ONE (07:58)
[2018-05-15] MEDS ORDERED: Lactated Ringers 1,000 ML ONE (07:59)
--- NOTE | 2018-05-15 08:15 | PCM.OPNOTE ---
- General Post-Op/Procedure Note Date of Surgery/Procedure: 05/15/18 Operative Procedure(s): Suction and sharp curettage for missed Pre Op Diagnosis: Missed Post-Op Diagnosis: Same Anesthesia Technique: General ET Tube Primary Surgeon: Rosales Yañez Anesthesia Provider: Mickey Nunez Fluid Replacement, Intraop: 1,000 EBL in mLs: 45 (Including tissue) Drain/Tube Comments:: None Complications: None Condition: Good Free Text/Narrative:: Patient was transported to the operating room and placed under general anesthesia in the low dorsal lithotomy position and prepared and draped in a sterile fashion. SCDs in place and functioning prior surgery. Ancef 2 g given intravenously prior surgery. Timeout performed confirming name date of and procedure as suction and sharp curettage for missed . Patient had been given Cytotec 200 g tablets 4 at 0500 hrs. The patient having been prepared and draped in sterile fashion examination under anesthesia revealed 7 week size uterus. Uterus sounded to 9 cm. Utilizing #7 and #8 curved cannula suction and sharp curettage performed without difficulty. All tissue sent to pathology for tissue evaluation. No blood transfusions required. Patient transported postanesthesia care unit in satisfactory condition. Blood type is O+ .
[2018-05-15] MEDS ORDERED: Neostigmine Methylsulfate 1 MG/ML 5 ML Syringe ONE (08:16)
[2018-05-15] MEDS ORDERED: HYDROmorphone 0.5 MG/0.5 ML Syringe IVPUSH PRN (08:39)
[2018-05-15] MEDS ORDERED: fentaNYL 100 MCG/2 ML SDV IVPUSH PRN (08:39)
--- NOTE | 2018-05-15 08:41 | PCM.POSTAN ---
POST ANESTHESIA ASSESSMENT - MENTAL STATUS Mental Status: Alert, Oriented - VITAL SIGNS Pulse Rate: 103 SaO2: 98 Resp Rate: 20 Blood Pressure: 128/71 Temperature: 36.9 C - RESPIRATORY Respiratory Status: Respiratory Rate WNL, Airway Patent, O2 Saturation Stable, Supplemental Oxygen - CARDIOVASCULAR CV Status: Pulse Rate WNL, Blood Pressure Stable - GASTROINTESTINAL GI Status: No Symptoms - PAIN Pain Score: 0 - POST OP HYDRATION Hydration Status: Adequate & Stable - OBSERVATIONS Free Text/Narrative:: no anesthesia complications noted
[2018-05-15 11:12] VITALS: BP 127/75
== END 2018-05-15 10:50 | disposition home or self-care (01) ==
LOC: JD.SDS 06:23
PROVIDERS: ATTEND Obstetrics & Gynecology
DX: O02.1 Missed abortion (principal); Z87.891 Personal history of nicotine dependence
CPT/HCPCS: 59820; J0690; J1885; J2250; J2405; J2590; J2704; J2710; J3010; J7120; J2001

== ENCOUNTER 2018-10-25 18:00 | Emergency (ER) | payer OTHER ==
[2018-10-25 18:14] VITALS: BP 130/82
[2018-10-25] MEDS ORDERED: Sodium Chloride 0.9% 10 ML Syringe FLUSH PRN (19:57)
--- NOTE | 2018-10-25 22:31 | EDM.PDOC ---
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 Patient is approximately 8 weeks . 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 Yañez. She has seen him for this thus far and has had a confirmed intrauterine on ultrasound. Patient is a . Patient reports that started with cramping to her lower abdomen earlier today. She states that she then experienced some spotting. The bleeding is nearly resolved upon arrival to the ER. She reports associated symptoms of nausea but no vomiting or low back pain. No urinary symptoms including no dysuria. Patient is currently on progesterone suppositories. blood type is O+. Lower Abdominal Pain Score (Numeric/FACES): 4 - Related Data Allergies Allergy/AdvReac Type Severity Reaction Status Date / Time No Known Allergies Allergy Verified 10/25/18 18:07 Home Meds: Home Meds PNV95/Ferrous Fumarate/FA [ Vitamin Tablet] 1 tab PO DAILY 03/04/17 [ History] Progesterone Suppos. 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: Musculoskeletal History: Reports: Fracture, Other (See Below) Other Musculoskeletal History: Carpal tunnel bilat Neurological History: Reports: Migraines - Past Surgical History HEENT Surgical History: Reports: Myringotomy w Tube(s) GI Surgical History: Reports: Cholecystectomy, Colonoscopy, EGD Oncologic Surgical History: Reports: Biopsy of Breast - History Comment History Comment: vits Social & Family History - Family History Family Medical History: Noncontributory - Tobacco Use Smoking Status *Q: Never Smoker - Caffeine Use Caffeine Use: Reports: Coffee, Soda - Living Situation & Occupation Living situation: Reports: Occupation: Employed ED ROS GENERAL - Review of Systems Review Of Systems: See Below GI/Abdominal: Reports: Abdominal Pain (Lower abdominal cramping), Nausea. Denies: Vomiting : Reports: Pain (Reports pelvic cramping). Denies: Dysuria Musculoskeletal: Denies: Back Pain ED EXAM - Physical Exam Exam: See Below Exam Limited By: No Limitations General Appearance: Alert, WD/WN, No Apparent Distress, Obese Respiratory/Chest: No Respiratory Distress, Lungs Clear, Normal Breath Sounds Cardiovascular: Normal Peripheral Pulses, Regular Rate, Rhythm, No Murmur GI/Abdominal Exam: Normal Bowel Sounds, Soft, Non-Tender Neurological: Alert, Oriented, Normal Cognition Psychiatric: Normal Affect, Normal Mood Skin Exam: Warm, Dry, Normal Color Course - Vital Signs Last Recorded V/S: Last Vital Signs Temp 97.7 F 10/25/18 18:08 Pulse 90 10/25/18 18:08 Resp 16 10/25/18 18:08 BP 130/82 10/25/18 18:08 Pulse Ox 98 10/25/18 18:08 - Orders/Labs/Meds Labs: Laboratory Tests 10/25/18 10/25/18 10/25/18 Range/Units 20:10 20:12 20:12 WBC 12.67 H (3.98-10.04) K/mm3 RBC 4.31 (3.98-5.22) M/mm3 Hgb 13.4 (11.2-15.7) gm/L Hct 39.6 (34.1-44.9) % MCV 91.9 (79.4-94.8) fl MCH 31.1 (25.6-32.2) pg MCHC 33.8 (32.2-35.5) g/dl RDW Std Deviation 40.0 (36.4-46.3) fL Plt Count 270 (182-369) K/mm3 MPV 10.2 (9.4-12.3) fl Neutrophils % (Manual) 68 H (40-60) % Band Neutrophils % 0 (0-10) % Lymphocytes % (Manual) 26 (20-40) % Atypical Lymphs % 0 % Monocytes % (Manual) 5 (2-10) % Eosinophils % (Manual) 1 (0.7-5.8) % Basophils % (Manual) 0 L (0.1-1.2) Platelet Estimate Adequate RBC Morph Comment Normal Sodium 140 (136-145) mEq/L Potassium 3.7 (3.5-5.1) mEq/L Chloride 105 (98-107) mEq/L Carbon Dioxide 24 (21-32) mEq/L Anion Gap 14.7 (5-15) BUN 11 (7-18) mg/dL Creatinine 0.7 (0.55-1.02) mg/dL Est Cr Clr Drug Dosing 107.93 mL/min Estimated GFR (MDRD) > 60 (>60) mL/min BUN/Creatinine Ratio 15.7 (14-18) Glucose 96 (74-106) mg/dL Calcium 9.8 (8.5-10.1) mg/dL Total Bilirubin 0.2 (0.2-1.0) mg/dL AST 12 L (15-37) U/L ALT 16 (14-59) U/L Alkaline Phosphatase 74 (46-116) U/L Total Protein 7.6 (6.4-8.2) g/dl Albumin 3.6 (3.4-5.0) g/dl Globulin 4.0 gm/dL Albumin/Globulin Ratio 0.9 L (1-2) HCG, Quant mIU/mL Urine Color Yellow (Yellow) Urine Appearance Cloudy H (Clear) Urine pH 7.5 (5.0-8.0) Ur Specific [place] 1.020 (1.005-1.030) Urine Protein Negative (Negative) Urine Glucose (UA) Negative (Negative) Urine Ketones Negative (Negative) Urine Occult Blood 1+ H (Negative) Urine Nitrite Negative (Negative) Urine Bilirubin Negative (Negative) Urine Urobilinogen 0.2 (0.2-1.0) Ur Leukocyte Esterase Negative (Negative) Urine RBC 0-5 (0-5) /hpf Urine WBC 0-5 (0-5) /hpf Ur Squamous Epith Cells 5-10 H (0-5) /hpf Amorphous Sediment Moderate H (NOT SEEN) /hpf Urine Bacteria Few (FEW) /hpf Urine Mucus Few (FEW) /hpf 10/25/18 Range/Units 20:12 WBC (3.98-10.04) K/mm3 RBC (3.98-5.22) M/mm3 Hgb (11.2-15.7) gm/L Hct (34.1-44.9) % MCV (79.4-94.8) fl MCH (25.6-32.2) pg MCHC (32.2-35.5) g/dl RDW Std Deviation (36.4-46.3) fL Plt Count (182-369) K/mm3 MPV (9.4-12.3) fl Neutrophils % (Manual) (40-60) % Band Neutrophils % (0-10) % Lymphocytes % (Manual) (20-40) % Atypical Lymphs % % Monocytes % (Manual) (2-10) % Eosinophils % (Manual) (0.7-5.8) % Basophils % (Manual) (0.1-1.2) Platelet Estimate RBC Morph Comment Sodium (136-145) mEq/L Potassium (3.5-5.1) mEq/L Chloride (98-107) mEq/L Carbon Dioxide (21-32) mEq/L Anion Gap (5-15) BUN (7-18) mg/dL Creatinine (0.55-1.02) mg/dL Est Cr Clr Drug Dosing mL/min Estimated GFR (MDRD) (>60) mL/min BUN/Creatinine Ratio (14-18) Glucose (74-106) mg/dL Calcium (8.5-10.1) mg/dL Total Bilirubin (0.2-1.0) mg/dL AST (15-37) U/L ALT (14-59) U/L Alkaline Phosphatase (46-116) U/L Total Protein (6.4-8.2) g/dl Albumin (3.4-5.0) g/dl Globulin gm/dL Albumin/Globulin Ratio (1-2) HCG, Quant 188150.0 mIU/mL Urine Color (Yellow) Urine Appearance (Clear) Urine pH (5.0-8.0) Ur Specific [place] (1.005-1.030) Urine Protein (Negative) Urine Glucose (UA) (Negative) Urine Ketones (Negative) Urine Occult Blood (Negative) Urine Nitrite (Negative) Urine Bilirubin (Negative) Urine Urobilinogen (0.2-1.0) Ur Leukocyte Esterase (Negative) Urine RBC (0-5) /hpf Urine WBC (0-5) /hpf Ur Squamous Epith Cells (0-5) /hpf Amorphous Sediment (NOT SEEN) /hpf Urine Bacteria (FEW) /hpf Urine Mucus (FEW) /hpf Meds: Medications Discontinued Medications Generic Name Dose Route Start Last Admin Trade Name Freq PRN Reason Stop Dose Admin Sodium Chloride 10 ml 10/25/18 19:57 Saline Flush FLUSH ASDIRECTED PRN Keep Vein Open - Radiology Interpretation Free Text/Narrative:: transvaginal ultrasound impression per vrad: there is a single intrauterine gestation. estimated gestational age 8 weeks 3 days. EStimated date of delivery by ultrasound June 03, 2019. - Re-Assessments/Exams Free Text/Narrative Re-Assessment/Exam: 10/25/18 22:27 I reviewed the ultrasound and lab results with the patient. Will discharge home at this time. Recommend follow-up with OB. No intercourse until cleared by OB. Continue current medications and plan of care. Her blood type is O+, program is not indicated. Discharge instructions as documented. Departure - Departure Time of Disposition: 22:29 Disposition: Home, Self-Care 01 Condition: Good Clinical Impression: Threatened , First trimester - Discharge Information *PRESCRIPTION DRUG MONITORING PROGRAM REVIEWED*: No *COPY OF PRESCRIPTION DRUG MONITORING REPORT IN PATIENT AROLDO: No Instructions: First Trimester of , [id number], Threatened Miscarriage, [id number] Referrals: Amanda Gonsales MD [Primary Care Provider] - Rosales Yañez MD [Physician] - Forms: ED Department Discharge Additional Instructions: Follow-up with your OB this week. Continue with your current plan of care. No intercourse or anything vaginally until cleared Ob. Make sure you are drinking plenty of fluids. Please return to the ER should your symptoms change or worsen.
--- NOTE | 2018-10-26 19:35 | US ---
First trimester obstetrical ultrasound: Multiple real-time images were obtained transvaginally. Comparison: Previous obstetrical ultrasounds are available, most recent exam is 10/17/18. Dates: Current ultrasound: [facility] 06/03/19, gestational age 8 weeks 3 days Earliest ultrasound (10/07/18): [facility] 06/03/19, gestational age 8 weeks 3 days Single intrauterine gestational sac is seen. Amniotic fluid volume is normal. Small embryo is identified. Small yolk sac is present. No subchorionic hemorrhage is identified. Maternal ovaries appear within normal limits. Minimal free fluid seen within the cul-de-sac which I believe is incidental. Measurements: [place]-rump length: 1.91 cm - 8 weeks 3 days Heart rate: 176 bpm Impression: 1. Single intrauterine gestation. Dates as noted above. 2. Fluid within the cul-de-sac which I believe is incidental. 3. No complicating process is identified by ultrasound at this time. No etiology identified for the patient's symptoms as noted in the clinical history. Diagnostic code #2 I agree with preliminary report from [facility], finalized on 10/25/18, 11:27 PM Central Time
== END 2018-10-25 22:45 | disposition home or self-care (01) ==
LOC: JD.ED 18:00
DX: O20.0 Threatened abortion (principal); Z3A.08 8 weeks gestation of pregnancy
CPT/HCPCS: 36415; 76817; 76817-26; 80053; 81001; 84702; 85007; 85027; 99283; 99284-25

== ENCOUNTER 2019-05-25 05:28 | Inpatient (IN) | payer OTHER ==
[~2019-05-25 05:28] MED LIST changes: -Lactated Ringers 1,000 ML IV SCH; -Lidocaine 1%/Sod Bicarbonate in NS 8.4% 1 ML Syringe IDERM PRN; +Nalbuphine 10 MG/ML Syringe IVPUSH PRN; +Oxytocin/Lactated Ringers 10 UNIT/1,000 ML BAG IV SCH
[2019-05-25] MEDS ORDERED: Terbutaline 1 MG/ML SDV SUBCUT ONE (06:53)
[2019-05-25] MEDS ORDERED: Terbutaline 1 MG/ML SDV ONE (06:56)
[2019-05-25] MEDS: Lactated Ringers 1,000 ML IV SCH ×5 (07:00→16:13)
[2019-05-25] MEDS ORDERED: Morphine PF 10 MG/10 ML SDV ONE (07:13)
[2019-05-25] MEDS: Oxytocin/Lactated Ringers 10 UNIT/1,000 ML BAG IV SCH ×2 (07:20→18:48)
[2019-05-25] MEDS ORDERED: Nalbuphine 10 MG/ML Syringe IVPUSH PRN (07:22)
[2019-05-25] MEDS ORDERED: Ondansetron 4 MG/2 ML SDV IVPUSH PRN (07:22)
--- NOTE | 2019-05-25 07:29 | PCM.PRNOTE ---
- Free Text/Narrative Note: PROCEDURE NOTE Procedure Date: 05/25/2019 Pre-operative Diagnosis: 1. at 39 0/7 wks gestation 2. Breech Presentation Post-operative Diagnosis: 1. As above s/p successful external cephalic version Anesthesia: None Description of Operation/Procedure: The risks, benefits, indications, potential complications, and alternatives were explained to the patient and informed consent obtained. Patient was placed in the supine position. Ultrasound was used to confirm complete breech presentation and appropriate MIMI. Terbutaline 0.25 mg subcutaneous was given. Hands were placed on the patient's abdomen. The breech was elevated out of the pelvis while clockwise traction was applied to the head. Ultrasound confirmed cephalic presentation as well as cardiac activity. The patient tolerated the procedure well. Complications: The patient tolerated the procedure well and no complications were noted. Plan: Will move forward with induction of labor. See H&P. Any Gerber MD
[2019-05-25] MEDS ORDERED: Lactated Ringers 1,000 ML IV SCH (07:30)
--- NOTE | 2019-05-25 07:34 | PCM.LDHP ---
L&D History of Present Illness - General Date of Service: 05/25/19 Admit Problem/Dx: Patient Status Order with Admit Dx/Problem 05/25/19 05:00 Patient Status [ADT] Routine Admission Diagnosis/Problem Admission Diagnosis/Problem Source of Information: Patient History Limitations: Reports: No Limitations - History of Present Illness Introduction:: Patient is a 24 y/o at 39 0/7 wks who presents for planned ECV and either IOL vs PLTCS. Doing well. Has not felt any large flips or turns. Otherwise doing well. 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: , Spontaneous : 4 Para: 2 LMP (Approximate): Musculoskeletal History: Reports: Fracture, Other (See Below) Other Musculoskeletal History: Carpal tunnel Neurological History: Reports: Migraines - Past Surgical History HEENT Surgical History: Reports: Myringotomy w Tube(s) GI Surgical History: Reports: Cholecystectomy, Colonoscopy, EGD (x3) Female Surgical History: Reports: Breast Biopsy, D&C, Other (See Below) Other Female Surgeries/Procedures: cyst removal of right breast Oncologic Surgical History: Reports: Biopsy of Breast - History Comment History Comment: vits Social & Family History - Family History Family Medical History: Noncontributory - Tobacco Use Smoking Status *Q: Former Smoker Second Hand Smoke Exposure: No - Caffeine Use Caffeine Use: Reports: Coffee, Soda - Alcohol Use Alcohol Use History: No - Recreational Drug Use Recreational Drug Use: No - Living Situation & Occupation Living situation: Reports: Occupation: Employed H&P Review of Systems - Review of Systems: Review Of Systems: See Below General: Reports: No Symptoms Pulmonary: Reports: No Symptoms Cardiovascular: Reports: No Symptoms Gastrointestinal: Reports: No Symptoms Genitourinary: Reports: No Symptoms Musculoskeletal: Reports: No Symptoms Psychiatric: Reports: No Symptoms Neurological: Reports: No Symptoms L&D Exam - Exam Exam: See Below - Vital Signs Weight: 105.687 kg - OB Specific Contraction Intensity: Irritability Movement: Active Heart Tones: Present Heart Tones per Min: 135 Heart Rate (FHR) Variability: Moderate (6-25 bmp) Presentation: Breech - Exam General: Alert, Oriented, Cooperative Lungs: Clear to Auscultation, Normal Respiratory Effort Cardiovascular: Regular Rate, Regular Rhythm GI/Abdominal Exam: Soft, Non-Tender Genitourinary: Normal external exam Extremities: Normal Inspection Skin: Warm, Dry, Intact - Patient Data Lab Results Last 24 hrs: Laboratory Results - last 24 hr 05/25/19 Range/Units 05:35 WBC 12.92 H (3.98-10.04) K/mm3 RBC 4.16 (3.98-5.22) M/mm3 Hgb 12.1 (11.2-15.7) gm/dl Hct 37.4 (34.1-44.9) % MCV 89.9 (79.4-94.8) fl MCH 29.1 (25.6-32.2) pg MCHC 32.4 (32.2-35.5) g/dl RDW Std Deviation 45.6 (36.4-46.3) fL Plt Count 241 (182-369) K/mm3 MPV 10.0 (9.4-12.3) fl Neut % (Auto) 74.4 H (34.0-71.1) % Lymph % (Auto) 14.9 L (19.3-51.7) % [place] % (Auto) 8.7 (4.7-12.5) % Eos % (Auto) 0.9 (0.7-5.8) Baso % (Auto) 0.2 (0.1-1.2) % Neut # (Auto) 9.62 H (1.56-6.13) K/mm3 Lymph # (Auto) 1.93 (1.18-3.74) K/mm3 [place] # (Auto) 1.12 H (0.24-0.36) K/mm3 Eos # (Auto) 0.11 (0.04-0.36) K/mm3 Baso # (Auto) 0.03 (0.01-0.08) K/mm3 Manual Slide Review Normal smear Result Diagrams: 05/25/19 05:35 - Problem List (1) 39 weeks gestation of SNOMED Code(s): 79269871 ICD Code: Z3A.39 - 39 WEEKS GESTATION OF Status: Acute Current Visit: No (2) Breech presentation SNOMED Code(s): 5424455 ICD Code: O32.1XX0 - MATERNAL CARE FOR BREECH PRESENTATION, UNSP Status: Acute Current Visit: Yes Qualifiers: Fetus number: single or unspecified fetus Qualified Code(s): O32.1XX0 - Maternal care for breech presentation, not applicable or unspecified (3) Successful external cephalic version SNOMED Code(s): 24175171 ICD Code: [id number] - Status: Acute Current Visit: Yes Problem List Initiated/Reviewed/Updated: Yes Orders Last 24hrs: Active Orders 24 hr Category Date Time Status Patient Status [ADT] Routine ADT 05/25/19 05:00 Active Activity as Tolerated [RC] PFP Care 05/25/19 05:00 Active Activity as Tolerated [RC] PFP Care 05/25/19 07:22 Ordered Communication Order [RC] ASDIRECTED Care 05/25/19 05:00 Active Communication Order [RC] ASDIRECTED Care 05/25/19 07:22 Ordered Heart Tones [RC] ASDIRECTED Care 05/25/19 07:25 Ordered Notify Provider [RC] PFP Care 05/25/19 05:00 Active Notify Provider [RC] PRN Care 05/25/19 05:00 Active Notify Provider [RC] PRN Care 05/25/19 07:22 Ordered Peripheral IV Care [RC] . DIRECTED Care 05/25/19 05:00 Active Vital Signs [RC] PER UNIT ROUTINE Care 05/25/19 05:00 Active Regular Diet [DIET] Diet 05/25/19 Breakfast Ordered RAPID PLASMA REAGIN,RPR [CHEM] Timed Lab 05/25/19 05:35 Received TYPE AND SCREEN [BBK] Timed Lab 05/25/19 05:35 Received Lactated Ringers [Ringers, Lactated] 1,000 ml Med 05/25/19 05:00 Active IV ASDIRECTED Lactated Ringers [Ringers, Lactated] 1,000 ml Med 05/25/19 07:30 Ordered IV ASDIRECTED Nalbuphine [Nubain] Med 05/25/19 05:00 Active 10 mg IVPUSH Q2H PRN Nalbuphine [Nubain] Med 05/25/19 07:22 Ordered 10 mg IVPUSH Q2H PRN Ondansetron [Zofran] Med 05/25/19 07:22 Ordered 4 mg IVPUSH Q4H PRN Oxytocin/Lactated Ringers [Pitocin in LR 10 Units/1,000 Med 05/25/19 05:00 Active ML] 10 unit in 1,000 ml IV .CONTINUOUS Oxytocin/Lactated Ringers [Pitocin in LR 10 Units/1,000 Med 05/25/19 07:30 Ordered ML] 10 unit in 1,000 ml IV TITRATE Sodium Chloride 0.9% [Saline Flush] Med 05/25/19 05:00 Active 10 ml FLUSH ASDIRECTED PRN Electronic Heart Tones Ext w TOCO [WOMSER] Ot 05/25/19 05:00 Ordered Routine Electronic Heart Tones Ext w TOCO [WOMSER] Oth 05/25/19 07:22 Ordered Routine Electronic Heart Tones Internal [WOMSER] Per Unit Ot 05/25/19 05:00 Ordered Routine Electronic Heart Tones Internal [WOMSER] Per Unit Ot 05/25/19 07:22 Ordered Routine Peripheral IV Insertion Adult [OM.PC] Routine Ot 05/25/19 05:00 Ordered Resuscitation Status Routine Resus Stat 05/25/19 02:45 Ordered Medication Orders Lactated Ringer's (Ringers, Lactated) 1,000 mls @ 100 mls/hr IV ASDIRECTED MICHAEL Last Admin: 05/25/19 07:00 Dose: 100 mls/hr Oxytocin/Lactated Ringer's (Pitocin In Lr 10 Units/1,000 Ml) 10 unit in 1,000 mls @ 500 mls/hr IV .CONTINUOUS MICHAEL Lactated Ringer's (Ringers, Lactated) 1,000 mls @ 100 mls/hr IV ASDIRECTED MICHAEL Oxytocin/Lactated Ringer's (Pitocin In Lr 10 Units/1,000 Ml) 10 unit in 1,000 mls @ 12 mls/hr IV TITRATE MICHAEL; Protocol Nalbuphine HCl (Nubain) 10 mg IVPUSH Q2H PRN PRN Reason: Pain Nalbuphine HCl (Nubain) 10 mg IVPUSH Q2H PRN PRN Reason: Pain Ondansetron HCl (Zofran) 4 mg IVPUSH Q4H PRN PRN Reason: Nausea/Vomiting Sodium Chloride (Saline Flush) 10 ml FLUSH ASDIRECTED PRN PRN Reason: Keep Vein Open Assessment/Plan Comment:: Patient is a 24 y/o at 39 0/7 wks who presents for attempted ECV and then either IOL vs PLTCS ---- * Labs done * Bedside US done and confirms breech presentation. Terbutaline given. ECV done and successful. See note. * Proceed with IOL - begin pitocin * GBS negative, no need for antibiotics * Pain medication per patient preference * Anticipate
--- NOTE | 2019-05-25 12:21 | PCM.PNLD ---
Labor Progress Note - VS & Meds Vital Signs: Last Vital Signs Temp 36.5 C 05/25/19 06:40 Pulse 90 05/25/19 06:40 Resp 16 05/25/19 06:40 BP 133/86 05/25/19 06:40 Pulse Ox Active Medications: Current Medications Lactated Ringer's (Ringers, Lactated) 1,000 mls @ 100 mls/hr IV ASDIRECTED MICHAEL Last Admin: 05/25/19 07:00 Dose: 100 mls/hr Oxytocin/Lactated Ringer's (Pitocin In Lr 10 Units/1,000 Ml) 10 unit in 1,000 mls @ 500 mls/hr IV .CONTINUOUS MICHAEL Lactated Ringer's (Ringers, Lactated) 1,000 mls @ 100 mls/hr IV ASDIRECTED MICHAEL Oxytocin/Lactated Ringer's (Pitocin In Lr 10 Units/1,000 Ml) 10 unit in 1,000 mls @ 12 mls/hr IV TITRATE MICHAEL; Protocol Last Titration: 05/25/19 11:02 Dose: 12 munits/min, 72 mls/hr Nalbuphine HCl (Nubain) 10 mg IVPUSH Q2H PRN PRN Reason: Pain Nalbuphine HCl (Nubain) 10 mg IVPUSH Q2H PRN PRN Reason: Pain Ondansetron HCl (Zofran) 4 mg IVPUSH Q4H PRN PRN Reason: Nausea/Vomiting Sodium Chloride (Saline Flush) 10 ml FLUSH ASDIRECTED PRN PRN Reason: Keep Vein Open Discontinued Medications Morphine Sulfate (Duramorph Pf) Confirm Administered Dose 10 mg .ROUTE .STK-MED ONE Stop: 05/25/19 07:14 Terbutaline Sulfate (Brethine) 0.25 mg SUBCUT ONETIME ONE Stop: 05/25/19 06:54 Last Admin: 05/25/19 07:05 Dose: 0.25 mg Terbutaline Sulfate (Brethine) Confirm Administered Dose 1 mg .ROUTE .STK-MED ONE Stop: 05/25/19 06:57 Last Admin: 05/25/19 07:27 Dose: Not Given - Uterine Contractions Uterine Monitoring Mode: External [place] Contraction Intensity: Mild to Moderate Uterine Resting Tone: Soft - Monitoring Heart Rate (FHR) Baseline: 130 Heart Rate (FHR) Variability: Moderate (6-25 bmp) Accelerations: Present, 15x15 Decelerations: None Strip Review: Category I - Vaginal Exam Dilation (cm): 2-3 Effacement (Percent): 60 Station: -3 Cervical Position: Midposition - Labor Progress (Free Text) Labor Progress: Doing well. On 12 of pitocin. Bedside US confirms still vertex presentation. AROM performed with release of clear fluid. Continue present management
[2019-05-25] MEDS ORDERED: diphenhydrAMINE 50 MG/ML SDV IVPUSH PRN (13:00)
[2019-05-25] MEDS ORDERED: fentaNYL 100 MCG/2 ML SDV EPIDUR PRN (13:00)
[2019-05-25] MEDS ORDERED: fentaNYL/Bupivacaine/NS 2 MCG-0.125% 250 ML EPIDUR PRN (13:00)
[2019-05-25] MEDS ORDERED: ePHEDrine 50 MG/ML SDV IVPUSH PRN (13:00)
--- NOTE | 2019-05-25 13:20 | PCM.PREANE ---
Preanesthetic Assessment - Anesthesia/Transfusion/Family Hx Anesthesia History: Prior Anesthesia Without Reaction Family History of Anesthesia Reaction: No Transfusion History: No Prior Transfusion(s) - Review of Systems General: No Symptoms Pulmonary: No Symptoms Cardiovascular: No Symptoms Gastrointestinal: Abdominal Pain (Uterine contractions), Other (GERD) Neurological: Headache (History of Migraines ) Other: Reports: None (Obesity BMI 40) - Physical Assessment Vital Signs: Last Vital Signs Temp 36.5 C 05/25/19 06:40 Pulse 90 05/25/19 06:40 Resp 16 05/25/19 06:40 BP 133/86 05/25/19 06:40 Pulse Ox Height: 1.63 m Weight: 105.687 kg ASA Class: 2 Mental Status: Alert & Oriented x3 Airway Class: Mallampati = 2 Dentition: Reports: Caries (Black gumline at front two incisors. ) Thyro-Mental Finger Breadths: 3 Mouth Opening Finger Breadths: 3 ROM/Head Extension: Full Lungs: Clear to Auscultation, Normal Respiratory Effort Cardiovascular: Regular Rate, Regular Rhythm - Lab Values: Laboratory Last Values WBC 12.92 K/mm3 (3.98-10.04) H 05/25/19 05:35 RBC 4.16 M/mm3 (3.98-5.22) 05/25/19 05:35 Hgb 12.1 gm/dl (11.2-15.7) 05/25/19 05:35 Hct 37.4 % (34.1-44.9) 05/25/19 05:35 MCV 89.9 fl (79.4-94.8) 05/25/19 05:35 MCH 29.1 pg (25.6-32.2) 05/25/19 05:35 MCHC 32.4 g/dl (32.2-35.5) 05/25/19 05:35 RDW Std Deviation 45.6 fL (36.4-46.3) 05/25/19 05:35 Plt Count 241 K/mm3 (182-369) 05/25/19 05:35 MPV 10.0 fl (9.4-12.3) 05/25/19 05:35 Neut % (Auto) 74.4 % (34.0-71.1) H 05/25/19 05:35 Lymph % (Auto) 14.9 % (19.3-51.7) L 05/25/19 05:35 [place] % (Auto) 8.7 % (4.7-12.5) 05/25/19 05:35 Eos % (Auto) 0.9 (0.7-5.8) 05/25/19 05:35 Baso % (Auto) 0.2 % (0.1-1.2) 05/25/19 05:35 Neut # (Auto) 9.62 K/mm3 (1.56-6.13) H 05/25/19 05:35 Lymph # (Auto) 1.93 K/mm3 (1.18-3.74) 05/25/19 05:35 [place] # (Auto) 1.12 K/mm3 (0.24-0.36) H 05/25/19 05:35 Eos # (Auto) 0.11 K/mm3 (0.04-0.36) 05/25/19 05:35 Baso # (Auto) 0.03 K/mm3 (0.01-0.08) 05/25/19 05:35 Manual Slide Review Normal smear 05/25/19 05:35 Blood Type O POSITIVE 05/25/19 05:35 Gel Antibody Screen Negative 05/25/19 05:35 - Allergies Allergies/Adverse Reactions: Allergies Allergy/AdvReac Type Severity Reaction Status Date / Time No Known Allergies Allergy Verified 05/25/19 07:34 - Acknowledgements Anesthesia Type Planned: Epidural Pt an Appropriate Candidate for the Planned Anesthesia: Yes Alternatives and Risks of Anesthesia Discussed w Pt/Guardian: Yes Pt/Guardian Understands and Agrees with Anesthesia Plan: Yes PreAnesthesia Questionnaire HEENT History: Reports: Impaired Vision Other HEENT History: glasses Cardiovascular History: Reports: None Respiratory History: Reports: None Gastrointestinal History: Reports: GERD Genitourinary History: Reports: UTI, Recurrent 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: , 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 Musculoskeletal History: Reports: Fracture, Other (See Below) Other Musculoskeletal History: Carpal tunnel Neurological History: Reports: Migraines - Past Surgical History HEENT Surgical History: Reports: Myringotomy w Tube(s) GI Surgical History: Reports: Cholecystectomy, Colonoscopy, EGD (x3) Female Surgical History: Reports: Breast Biopsy, D&C, Other (See Below) Other Female Surgeries/Procedures: cyst removal of right breast Oncologic Surgical History: Reports: Biopsy of Breast - History Comment History Comment: vits - SUBSTANCE USE Smoking Status *Q: Former Smoker Tobacco Use Within Last Twelve Months: No Second Hand Smoke Exposure: No Recreational Drug Use History: No - HOME MEDS Home Medications: Home Meds Pnv No.95/Ferrous Fum/Folic AC [ Vitamin Tablet] 1 tab PO DAILY [History] - CURRENT (IN HOUSE) MEDS Current Meds: Current Medications Diphenhydramine HCl (Benadryl) 25 mg IVPUSH Q6H PRN PRN Reason: pruritis Ephedrine Sulfate (Ephedrine Sulfate) 5 mg IVPUSH ASDIRECTED PRN PRN Reason: Hypotension Fentanyl (Sublimaze) 100 mcg EPIDUR Q3H PRN PRN Reason: Pain Fentanyl/Bupivacaine HCl (Fentanyl/Bupivacaine/Ns 2 Mcg-0.125% 250 Ml) 250 ml EPIDUR CONTINUOUS PRN PRN Reason: Pain Lactated Ringer's (Ringers, Lactated) 1,000 mls @ 100 mls/hr IV ASDIRECTED MICHAEL Last Admin: 05/25/19 12:51 Dose: 100 mls/hr Oxytocin/Lactated Ringer's (Pitocin In Lr 10 Units/1,000 Ml) 10 unit in 1,000 mls @ 500 mls/hr IV .CONTINUOUS MICHAEL Lactated Ringer's (Ringers, Lactated) 1,000 mls @ 100 mls/hr IV ASDIRECTED MICHAEL Oxytocin/Lactated Ringer's (Pitocin In Lr 10 Units/1,000 Ml) 10 unit in 1,000 mls @ 12 mls/hr IV TITRATE MICHAEL; Protocol Last Titration: 05/25/19 11:02 Dose: 12 munits/min, 72 mls/hr Nalbuphine HCl (Nubain) 10 mg IVPUSH Q2H PRN PRN Reason: Pain Nalbuphine HCl (Nubain) 10 mg IVPUSH Q2H PRN PRN Reason: Pain Ondansetron HCl (Zofran) 4 mg IVPUSH Q4H PRN PRN Reason: Nausea/Vomiting Sodium Chloride (Saline Flush) 10 ml FLUSH ASDIRECTED PRN PRN Reason: Keep Vein Open Discontinued Medications Morphine Sulfate (Duramorph Pf) Confirm Administered Dose 10 mg .ROUTE .STK-MED ONE Stop: 05/25/19 07:14 Terbutaline Sulfate (Brethine) 0.25 mg SUBCUT ONETIME ONE Stop: 05/25/19 06:54 Last Admin: 05/25/19 07:05 Dose: 0.25 mg Terbutaline Sulfate (Brethine) Confirm Administered Dose 1 mg .ROUTE .STK-MED ONE Stop: 05/25/19 06:57 Last Admin: 05/25/19 07:27 Dose: Not Given
[2019-05-25] MEDS ORDERED: fentaNYL 100 MCG/2 ML SDV ONE (15:18)
--- NOTE | 2019-05-25 16:16 | PCM.SN ---
- Free Text/Narrative Note: Epidural Catheter Assessment: Time: 1500 Returned to evaluate epidural catheter. Carmel has heaviness and tingling in her legs but has not achieved comfort during contractions. Cold used to access epidural level. Good movement noted to bilateral legs. Discussed options with Carmel. Recommended redoing epidural to increase pain control. Carmel is agreeable to replacement of catheter. See OBTV for epidural replacement note.
--- NOTE | 2019-05-25 18:21 | PCM.DEL ---
L & D Note - General Info Date of Service: 05/25/19 - Delivery Note Labor: Induced by ARM, Induced by Oxytocin Delivery Outcome: Livebirth Infant Delivery Method: Spontaneous Vaginal Delivery-Single Infant Delivery Mode: Spontaneous Presentation: Right Occiput Anterior (KAE) Nuchal Cord: None Anesthesia Type: Epidural Amniotic Fluid Description: Clear Episiotomy Type: None Laceration: None Placenta: Intact, Spontaneous Cord: 3 Vessels Estimated Blood Loss: 100 Resuscitation Needed: Yes [place]: Bulb Syringe, Stimulated, Warmed, [place] Used, Warmer Used Score 1 min: 8 Score 5 min: 9 Delivery Comments (Free Text/Narrative):: Patient found to be complete and began pushing. With maternal pushing effort head delivered from an KAE presentation. No nuchal cord present. With gentle downward traction the shoulders and body delivered. Infant placed on maternal abdomen. Cord clamped and cut. Cord blood obtained. Placenta allowed time to separate and expelled intact. Inspection of the perineum showed no laceration - General Info Date of Service: 05/25/19 - Patient Data Weight - Most Recent: 105.687 kg - Problem List & Annotations (1) 39 weeks gestation of SNOMED Code(s): 53846530 Code(s): Z3A.39 - 39 WEEKS GESTATION OF Status: Acute Current Visit: No (2) Breech presentation SNOMED Code(s): 2778901 Code(s): O32.1XX0 - MATERNAL CARE FOR BREECH PRESENTATION, UNSP Status: Acute Current Visit: Yes Qualifiers: Fetus number: single or unspecified fetus Qualified Code(s): O32.1XX0 - Maternal care for breech presentation, not applicable or unspecified (3) Successful external cephalic version SNOMED Code(s): 95803855 Code(s): SXW8412 - Status: Acute Current Visit: Yes (4) (normal spontaneous vaginal delivery) SNOMED Code(s): 99518409, 990102863 Code(s): O80 - ENCOUNTER FOR FULL-TERM UNCOMPLICATED DELIVERY Status: Acute Current Visit: No - Problem List Review Problem List Initiated/Reviewed/Updated: Yes - My Orders Last 24 Hours: My Active Orders 05/25/19 02:45 Resuscitation Status Routine 05/25/19 05:00 Patient Status [ADT] Routine Activity as Tolerated [RC] PFP Communication Order [RC] ASDIRECTED Notify Provider [RC] PFP Notify Provider [RC] PRN Peripheral IV Care [RC] . DIRECTED Vital Signs [RC] PER UNIT ROUTINE Lactated Ringers [Ringers, Lactated] 1,000 ml IV ASDIRECTED Nalbuphine [Nubain] 10 mg IVPUSH Q2H PRN Oxytocin/Lactated Ringers [Pitocin in LR 10 Units/1,000 ML] 10 unit in 1,000 ml IV .CONTINUOUS Sodium Chloride 0.9% [Saline Flush] 10 ml FLUSH ASDIRECTED PRN Electronic Heart Tones Ext w TOCO [WOMSER] Routine Electronic Heart Tones Internal [WOMSER] Per Unit Routine Peripheral IV Insertion Adult [OM.PC] Routine 05/25/19 07:22 Activity as Tolerated [RC] PFP Communication Order [RC] ASDIRECTED Notify Provider [RC] PRN Nalbuphine [Nubain] 10 mg IVPUSH Q2H PRN Ondansetron [Zofran] 4 mg IVPUSH Q4H PRN Electronic Heart Tones Ext w TOCO [WOMSER] Routine Electronic Heart Tones Internal [WOMSER] Per Unit Routine 05/25/19 07:30 Lactated Ringers [Ringers, Lactated] 1,000 ml IV ASDIRECTED Oxytocin/Lactated Ringers [Pitocin in LR 10 Units/1,000 ML] 10 unit in 1,000 ml IV TITRATE 05/25/19 Breakfast Regular Diet [DIET] - Assessment Assessment:: 24 y/o G4 now P3013 PPD#0 from at 39 0/7 wks - Plan Plan:: * Routine cares * Breast feeding * Discharge home in 1-2 days
[2019-05-25] MEDS ORDERED: Benzocaine/Menthol 20%-0.5% Spray 56 GM Canister TOP PRN (18:36)
[2019-05-25] MEDS ORDERED: Witch Hazel Medicated Pads 40/Jar TOP PRN (18:36)
[2019-05-25] MEDS ORDERED: Acetaminophen 325 MG Tab PO PRN (18:36)
[2019-05-25] MEDS ORDERED: Docusate Sodium 100 MG Cap PO PRN (18:36)
[2019-05-26] MEDS: Ibuprofen 600 MG Tab PO PRN ×3 (01:26→20:30)
--- NOTE | 2019-05-26 07:09 | PCM.PNPP ---
- General Info Date of Service: 05/26/19 Functional Status: Reports: Pain Controlled, Tolerating Diet, Ambulating, Urinating - Review of Systems General: Reports: No Symptoms Pulmonary: Reports: No Symptoms Cardiovascular: Reports: No Symptoms Gastrointestinal: Reports: No Symptoms Genitourinary: Reports: No Symptoms Musculoskeletal: Reports: Back Pain Neurological: Reports: No Symptoms - Patient Data Vital Signs - Most Recent: Last Vital Signs Temp 36.5 C 05/25/19 06:40 Pulse 87 05/26/19 03:50 Resp 16 05/26/19 03:50 BP 109/65 05/26/19 03:50 Pulse Ox 98 05/26/19 03:50 Weight - Most Recent: 105.687 kg I&O - Last 24 Hours: Intake & Output 05/25/19 05/26/19 05/26/19 22:59 06:59 14:59 Intake Total 1360 Balance 1360 Lab Results - Last 24 Hours: Laboratory Results - last 24 hr 05/25/19 05/25/19 05/25/19 Range/Units 05:35 05:35 05:35 Manual Slide Review Normal smear RPR Non-reactive (NONREACTIVE) Blood Type O POSITIVE Gel Antibody Screen Negative Med Orders - Current: Current Medications Acetaminophen (Tylenol) 650 mg PO Q4H PRN PRN Reason: mild pain or fever Benzocaine/Menthol ([facility]) 0 gm TOP ASDIRECTED PRN PRN Reason: Perineal Comfort Measure Docusate Sodium (Colace) 100 mg PO BID PRN PRN Reason: Constipation Ibuprofen (Motrin) 600 mg PO Q6H PRN PRN Reason: Mild pain or fever Last Admin: 05/26/19 01:26 Dose: 600 mg Witch Zara (Tucks) 1 pad TOP ASDIRECTED PRN PRN Reason: Perineal Comfort Measure Discontinued Medications Diphenhydramine HCl (Benadryl) 25 mg IVPUSH Q6H PRN PRN Reason: pruritis Ephedrine Sulfate (Ephedrine Sulfate) 5 mg IVPUSH ASDIRECTED PRN PRN Reason: Hypotension Fentanyl (Sublimaze) 100 mcg EPIDUR Q3H PRN PRN Reason: Pain Last Admin: 05/25/19 13:29 Dose: 100 mcg Fentanyl (Sublimaze) Confirm Administered Dose 100 mcg .ROUTE .STK-MED ONE Stop: 05/25/19 15:19 Last Admin: 05/25/19 15:35 Dose: 100 mcg Fentanyl/Bupivacaine HCl (Fentanyl/Bupivacaine/Ns 2 Mcg-0.125% 250 Ml) 250 ml EPIDUR CONTINUOUS PRN PRN Reason: Pain Last Admin: 05/25/19 13:29 Dose: 250 ml Lactated Ringer's (Ringers, Lactated) 1,000 mls @ 100 mls/hr IV ASDIRECTED MICHAEL Last Admin: 05/25/19 16:13 Dose: 100 mls/hr Oxytocin/Lactated Ringer's (Pitocin In Lr 10 Units/1,000 Ml) 10 unit in 1,000 mls @ 500 mls/hr IV .CONTINUOUS MICHAEL Lactated Ringer's (Ringers, Lactated) 1,000 mls @ 100 mls/hr IV ASDIRECTED MICHAEL Oxytocin/Lactated Ringer's (Pitocin In Lr 10 Units/1,000 Ml) 10 unit in 1,000 mls @ 12 mls/hr IV TITRATE MICHAEL; Protocol Last Admin: 05/25/19 18:48 Dose: 250 mls/hr Morphine Sulfate (Duramorph Pf) Confirm Administered Dose 10 mg .ROUTE .[employer]-MED ONE Stop: 05/25/19 07:14 Nalbuphine HCl (Nubain) 10 mg IVPUSH Q2H PRN PRN Reason: Pain Nalbuphine HCl (Nubain) 10 mg IVPUSH Q2H PRN PRN Reason: Pain Ondansetron HCl (Zofran) 4 mg IVPUSH Q4H PRN PRN Reason: Nausea/Vomiting Sodium Chloride (Saline Flush) 10 ml FLUSH ASDIRECTED PRN PRN Reason: Keep Vein Open Terbutaline Sulfate (Brethine) 0.25 mg SUBCUT ONETIME ONE Stop: 05/25/19 06:54 Last Admin: 05/25/19 07:05 Dose: 0.25 mg Terbutaline Sulfate (Brethine) Confirm Administered Dose 1 mg .ROUTE .[employer]-MED ONE Stop: 05/25/19 06:57 Last Admin: 05/25/19 07:27 Dose: Not Given - Infant Interaction Infant Disposition, : in Room with Family Interaction: Holding Feeding: Attempted ; Nursed Fair/Poor Support Person: - Recovery Exam Fundal Tone: Firm Fundal Level: At Umbilicus Fundal Placement: Midline Lochia Amount: Small Lochia Color: Rubra/Red Perineum Description: Intact, Minimal Bruising/Swelling Bladder Status: Voiding Urinary Elimination: Voided - Exam General: Alert, Oriented, Cooperative GI/Abdominal Exam: Soft, Non-Tender Extremities: Normal Inspection Skin: Warm, Dry, Intact - Problem List & Annotations (1) 39 weeks gestation of SNOMED Code(s): 65253319 Code(s): Z3A.39 - 39 WEEKS GESTATION OF Status: Acute Current Visit: No (2) Breech presentation SNOMED Code(s): 8527704 Code(s): O32.1XX0 - MATERNAL CARE FOR BREECH PRESENTATION, UNSP Status: Acute Current Visit: Yes Qualifiers: Fetus number: single or unspecified fetus Qualified Code(s): O32.1XX0 - Maternal care for breech presentation, not applicable or unspecified (3) Successful external cephalic version SNOMED Code(s): 65103336 Code(s): GVS0567 - Status: Acute Current Visit: Yes (4) (normal spontaneous vaginal delivery) SNOMED Code(s): 89583950, 799361492 Code(s): O80 - ENCOUNTER FOR FULL-TERM UNCOMPLICATED DELIVERY Status: Acute Current Visit: No - Problem List Review Problem List Initiated/Reviewed/Updated: Yes - My Orders Last 24 Hours: My Active Orders 05/25/19 18:36 Activity as Tolerated [RC] PER UNIT ROUTINE Vital Signs [RC] 03,09,15,21 Acetaminophen [Tylenol] 650 mg PO Q4H PRN Benzocaine/Menthol [[facility]] See Dose Instructions TOP ASDIRECTED PRN Docusate Sodium [Colace] 100 mg PO BID PRN Ibuprofen [Motrin] 600 mg PO Q6H PRN Witch Zara [Tucks] 1 pad TOP ASDIRECTED PRN Assess Lochia [WOMSER] Per Unit Routine Assess Uterine Involution [WOMSER] Per Unit Routine Breast Pump [WOMSER] Per Unit Routine Heat Therapy [OM.PC] PRN Ice Therapy [OM.PC] Per Unit Routine Perineal Care [OM.PC] Per Unit Routine Peripheral IV Discontinue [OM.PC] Routine Sitz Bath [OM.PC] Per Unit Routine 05/25/19 Dinner Regular Diet [DIET] 05/26/19 18:36 Heat Therapy [OM.PC] PRN - Assessment Assessment:: 24 y/o G4 now P3013 PPD#1 from at 39 0/7 wks - Plan Plan:: * Routine cares * Breast feeding * Discharge home in today vs tomorrow
--- NOTE | 2019-05-26 09:12 | PCM48HPAN ---
Post Anesthesia Note - EVALUATION WITHIN 48HRS OF ANESTHETIC Vital Signs in Normal Range: Yes Patient Participated in Evaluation: Yes Respiratory Function Stable: Yes Airway Patent: Yes Cardiovascular Function Stable: Yes Hydration Status Stable: Yes Pain Control Satisfactory: Yes Nausea and Vomiting Control Satisfactory: Yes Mental Status Recovered: Yes Vital Signs: Last Vital Signs Temp 96.4 F 05/26/19 08:42 Pulse 105 H 05/26/19 08:42 Resp 16 05/26/19 08:42 BP 125/71 05/26/19 08:42 Pulse Ox 99 05/26/19 08:42 - COMMENTS/OBSERVATIONS Free Text/Narrative:: first epidural didn't work. She said second one was good.
--- NOTE | 2019-05-27 07:59 | PCM.PNPP ---
- General Info Date of Service: 05/27/19 Functional Status: Reports: Pain Controlled, Tolerating Diet, Ambulating, Urinating - Review of Systems General: Reports: No Symptoms Pulmonary: Reports: No Symptoms Cardiovascular: Reports: No Symptoms Gastrointestinal: Reports: No Symptoms Genitourinary: Reports: No Symptoms Musculoskeletal: Reports: No Symptoms Neurological: Reports: No Symptoms - Patient Data Vital Signs - Most Recent: Last Vital Signs Temp 36.7 C 05/26/19 15:06 Pulse 73 05/27/19 03:01 Resp 15 05/27/19 03:01 BP 125/77 05/27/19 03:01 Pulse Ox 98 05/27/19 03:01 Weight - Most Recent: 105.687 kg I&O - Last 24 Hours: Intake & Output 05/26/19 05/27/19 05/27/19 22:59 06:59 14:59 Intake Total 120 Balance 120 Med Orders - Current: Current Medications Acetaminophen (Tylenol) 650 mg PO Q4H PRN PRN Reason: mild pain or fever Benzocaine/Menthol ([facility]) 0 gm TOP ASDIRECTED PRN PRN Reason: Perineal Comfort Measure Docusate Sodium (Colace) 100 mg PO BID PRN PRN Reason: Constipation Ibuprofen (Motrin) 600 mg PO Q6H PRN PRN Reason: Mild pain or fever Last Admin: 05/26/19 20:30 Dose: 600 mg Witch Zara (Tucks) 1 pad TOP ASDIRECTED PRN PRN Reason: Perineal Comfort Measure Discontinued Medications Diphenhydramine HCl (Benadryl) 25 mg IVPUSH Q6H PRN PRN Reason: pruritis Ephedrine Sulfate (Ephedrine Sulfate) 5 mg IVPUSH ASDIRECTED PRN PRN Reason: Hypotension Fentanyl (Sublimaze) 100 mcg EPIDUR Q3H PRN PRN Reason: Pain Last Admin: 05/25/19 13:29 Dose: 100 mcg Fentanyl (Sublimaze) Confirm Administered Dose 100 mcg .ROUTE .STK-MED ONE Stop: 05/25/19 15:19 Last Admin: 05/25/19 15:35 Dose: 100 mcg Fentanyl/Bupivacaine HCl (Fentanyl/Bupivacaine/Ns 2 Mcg-0.125% 250 Ml) 250 ml EPIDUR CONTINUOUS PRN PRN Reason: Pain Last Admin: 05/25/19 13:29 Dose: 250 ml Lactated Ringer's (Ringers, Lactated) 1,000 mls @ 100 mls/hr IV ASDIRECTED MICHAEL Last Admin: 05/25/19 16:13 Dose: 100 mls/hr Oxytocin/Lactated Ringer's (Pitocin In Lr 10 Units/1,000 Ml) 10 unit in 1,000 mls @ 500 mls/hr IV .CONTINUOUS MICHAEL Lactated Ringer's (Ringers, Lactated) 1,000 mls @ 100 mls/hr IV ASDIRECTED MICHAEL Oxytocin/Lactated Ringer's (Pitocin In Lr 10 Units/1,000 Ml) 10 unit in 1,000 mls @ 12 mls/hr IV TITRATE MICHAEL; Protocol Last Admin: 05/25/19 18:48 Dose: 250 mls/hr Morphine Sulfate (Duramorph Pf) Confirm Administered Dose 10 mg .ROUTE .STK-MED ONE Stop: 05/25/19 07:14 Nalbuphine HCl (Nubain) 10 mg IVPUSH Q2H PRN PRN Reason: Pain Nalbuphine HCl (Nubain) 10 mg IVPUSH Q2H PRN PRN Reason: Pain Ondansetron HCl (Zofran) 4 mg IVPUSH Q4H PRN PRN Reason: Nausea/Vomiting Sodium Chloride (Saline Flush) 10 ml FLUSH ASDIRECTED PRN PRN Reason: Keep Vein Open Terbutaline Sulfate (Brethine) 0.25 mg SUBCUT ONETIME ONE Stop: 05/25/19 06:54 Last Admin: 05/25/19 07:05 Dose: 0.25 mg Terbutaline Sulfate (Brethine) Confirm Administered Dose 1 mg .ROUTE .STK-MED ONE Stop: 05/25/19 06:57 Last Admin: 05/25/19 07:27 Dose: Not Given - Interaction Infant Disposition, : in Room with Family Interaction: Holding Infant Feeding: Attempted ; Nursed Fair/Poor Support Person: - Recovery Exam Fundal Tone: Firm Fundal Level: At Umbilicus Fundal Placement: Midline Lochia Amount: Small Lochia Color: Rubra/Red Perineum Description: Intact, Minimal Bruising/Swelling Episiotomy/Laceration: None Bladder Status: Voiding Urinary Elimination: Voided - Exam General: Alert, Oriented, Cooperative GI/Abdominal Exam: Soft, Non-Tender Extremities: Normal Inspection Skin: Warm, Dry, Intact - Problem List & Annotations (1) 39 weeks gestation of SNOMED Code(s): 98803405 Code(s): Z3A.39 - 39 WEEKS GESTATION OF Status: Acute Current Visit: No (2) Breech presentation SNOMED Code(s): 3033862 Code(s): O32.1XX0 - MATERNAL CARE FOR BREECH PRESENTATION, UNSP Status: Acute Current Visit: Yes Qualifiers: Fetus number: single or unspecified fetus Qualified Code(s): O32.1XX0 - Maternal care for breech presentation, not applicable or unspecified (3) Successful external cephalic version SNOMED Code(s): 76995602 Code(s): OYL0195 - Status: Acute Current Visit: Yes (4) (normal spontaneous vaginal delivery) SNOMED Code(s): 28193695, 700306307 Code(s): O80 - ENCOUNTER FOR FULL-TERM UNCOMPLICATED DELIVERY Status: Acute Current Visit: No - Problem List Review Problem List Initiated/Reviewed/Updated: Yes - My Orders Last 24 Hours: My Active Orders 05/26/19 18:36 Heat Therapy [OM.PC] PRN 05/27/19 07:57 Ready for Discharge [RC] PER UNIT ROUTINE - Assessment Assessment:: 24 y/o G4 now P3013 PPD#2 from at 39 0/7 wks - Plan Plan:: * Routine cares * Breast feeding * Discharge home today
--- NOTE | 2019-05-27 08:02 | PCM.DCSUM1 ---
Discharge Summary - Discharge Data Discharge Date: 05/27/19 Discharge Disposition: Home, Self-Care 01 Condition: Good - Referral to Home Health Primary Care Physician: Any Gerber MD - Discharge Diagnosis/Problem(s) (1) 39 weeks gestation of SNOMED Code(s): 99385010 ICD Code: Z3A.39 - 39 WEEKS GESTATION OF Status: Acute Current Visit: No (2) Breech presentation SNOMED Code(s): 1555147 ICD Code: O32.1XX0 - MATERNAL CARE FOR BREECH PRESENTATION, UNSP Status: Acute Current Visit: Yes Qualifiers: Fetus number: single or unspecified fetus Qualified Code(s): O32.1XX0 - Maternal care for breech presentation, not applicable or unspecified (3) Successful external cephalic version SNOMED Code(s): 95111017 ICD Code: LRS6026 - Status: Acute Current Visit: Yes (4) (normal spontaneous vaginal delivery) SNOMED Code(s): 55916148, 963597790 ICD Code: O80 - ENCOUNTER FOR FULL-TERM UNCOMPLICATED DELIVERY Status: Acute Current Visit: No - Patient Summary/Data Complications: None Consults: None Recommended Follow-up Testing/Procedures: Follow up in 3 weeks for check Hospital Course: 24 y/o presented at 39 0/7 wks for attempted ECV for breech presentation. This was done and successful. See procedure note. She then had an induction begun with pitocin and then AROM. Progressed well to complete dilation and underwent an uncomplicated . See delivery note. she did well and was discharged home on PPD#2 - Patient Instructions Diet: Regular Diet as Tolerated Activity: As Tolerated Activity, Other: Pelvic rest for 6 weeks Driving: May Drive Today Showering/Bathing: May Shower Showering/Bathing, Other: May bathe Notify Provider of: Fever, Increased Pain, Swelling and Redness, Drainage, Nausea and/or Vomiting - Discharge Plan *PRESCRIPTION DRUG MONITORING PROGRAM REVIEWED*: Not Applicable *COPY OF PRESCRIPTION DRUG MONITORING REPORT IN PATIENT AROLDO: Not Applicable Home Medications: Home Meds Pnv No.95/Ferrous Fum/Folic AC [ Vitamin Tablet] 1 tab PO DAILY [History] Ibuprofen [Motrin] 600 mg PO Q6H PRN tablet 05/26/19 [Rx] Referrals: Any Gerber MD [Primary Care Provider] - (3 weeks for check ) - Discharge Summary/Plan Comment DC Time >30 min.: No - Patient Data Vitals - Most Recent: Last Vital Signs Temp 36.7 C 05/26/19 15:06 Pulse 73 05/27/19 03:01 Resp 15 05/27/19 03:01 BP 125/77 05/27/19 03:01 Pulse Ox 98 05/27/19 03:01 Weight - Most Recent: 105.687 kg I&O - Last 24 hours: Intake & Output 05/26/19 05/27/19 05/27/19 22:59 06:59 14:59 Intake Total 120 Balance 120 Med Orders - Current: Current Medications Acetaminophen (Tylenol) 650 mg PO Q4H PRN PRN Reason: mild pain or fever Benzocaine/Menthol ([facility]) 0 gm TOP ASDIRECTED PRN PRN Reason: Perineal Comfort Measure Docusate Sodium (Colace) 100 mg PO BID PRN PRN Reason: Constipation Ibuprofen (Motrin) 600 mg PO Q6H PRN PRN Reason: Mild pain or fever Last Admin: 05/26/19 20:30 Dose: 600 mg Witch Zara (Tucks) 1 pad TOP ASDIRECTED PRN PRN Reason: Perineal Comfort Measure Discontinued Medications Diphenhydramine HCl (Benadryl) 25 mg IVPUSH Q6H PRN PRN Reason: pruritis Ephedrine Sulfate (Ephedrine Sulfate) 5 mg IVPUSH ASDIRECTED PRN PRN Reason: Hypotension Fentanyl (Sublimaze) 100 mcg EPIDUR Q3H PRN PRN Reason: Pain Last Admin: 05/25/19 13:29 Dose: 100 mcg Fentanyl (Sublimaze) Confirm Administered Dose 100 mcg .ROUTE .STK-MED ONE Stop: 05/25/19 15:19 Last Admin: 05/25/19 15:35 Dose: 100 mcg Fentanyl/Bupivacaine HCl (Fentanyl/Bupivacaine/Ns 2 Mcg-0.125% 250 Ml) 250 ml EPIDUR CONTINUOUS PRN PRN Reason: Pain Last Admin: 05/25/19 13:29 Dose: 250 ml Lactated Ringer's (Ringers, Lactated) 1,000 mls @ 100 mls/hr IV ASDIRECTED MICHAEL Last Admin: 05/25/19 16:13 Dose: 100 mls/hr Oxytocin/Lactated Ringer's (Pitocin In Lr 10 Units/1,000 Ml) 10 unit in 1,000 mls @ 500 mls/hr IV .CONTINUOUS MICHAEL Lactated Ringer's (Ringers, Lactated) 1,000 mls @ 100 mls/hr IV ASDIRECTED MICHAEL Oxytocin/Lactated Ringer's (Pitocin In Lr 10 Units/1,000 Ml) 10 unit in 1,000 mls @ 12 mls/hr IV TITRATE MICHAEL; Protocol Last Admin: 05/25/19 18:48 Dose: 250 mls/hr Morphine Sulfate (Duramorph Pf) Confirm Administered Dose 10 mg .ROUTE .[employer] ONE Stop: 05/25/19 07:14 Nalbuphine HCl (Nubain) 10 mg IVPUSH Q2H PRN PRN Reason: Pain Nalbuphine HCl (Nubain) 10 mg IVPUSH Q2H PRN PRN Reason: Pain Ondansetron HCl (Zofran) 4 mg IVPUSH Q4H PRN PRN Reason: Nausea/Vomiting Sodium Chloride (Saline Flush) 10 ml FLUSH ASDIRECTED PRN PRN Reason: Keep Vein Open Terbutaline Sulfate (Brethine) 0.25 mg SUBCUT ONETIME ONE Stop: 05/25/19 06:54 Last Admin: 05/25/19 07:05 Dose: 0.25 mg Terbutaline Sulfate (Brethine) Confirm Administered Dose 1 mg .ROUTE .[employer] ONE Stop: 05/25/19 06:57 Last Admin: 05/25/19 07:27 Dose: Not Given
[2019-05-27 10:49] VITALS: BP 134/78; PULSE 88
== END 2019-05-27 09:50 | disposition home or self-care (01) | DRG 807 ==
LOC: JD.OB 05:28 → OBSVTOIN 18:04 → JD.OB 18:04
PROVIDERS: ADMIT Obstetrics & Gynecology; ATTEND Obstetrics & Gynecology
PROC: 10E0XZZ Delivery of Products of Conception, External Approach (ICD-10-PCS; principal; 2019-05-25)
PROC: 10907ZC Drainage of Amniotic Fluid, Therapeutic from Products of Conception, Via Natural or Artificial Opening (ICD-10-PCS; 2019-05-25)
PROC: 3E033VJ Introduction of Other Hormone into Peripheral Vein, Percutaneous Approach (ICD-10-PCS; 2019-05-25)
PROC: 10S0XZZ Reposition Products of Conception, External Approach (ICD-10-PCS; 2019-05-25)
PROC: 3E0R3BZ Introduction of Anesthetic Agent into Spinal Canal, Percutaneous Approach (ICD-10-PCS; 2019-05-25)
PROC: 00HU33Z Insertion of Infusion Device into Spinal Canal, Percutaneous Approach (ICD-10-PCS; 2019-05-25)
DX: O32.1XX0 Maternal care for breech presentation, not applicable or unspecified (principal); Z37.0 Single live birth; Z3A.39 39 weeks gestation of pregnancy; Z87.891 Personal history of nicotine dependence
CPT/HCPCS: 01967; 36415; 51702; 59025; 59409; 59412; 85025; 86592; 86850; 86900; 86901; A9270-GY; J2270; J2590; J3010; J3105; J7120

== ENCOUNTER 2019-10-06 16:05 | Emergency (ER) | payer OTHER ==
[2019-10-06 16:25] VITALS: BP 128/88; PULSE 76
[2019-10-06] MEDS ORDERED: Ketorolac 60 MG/2 ML SDV IM ONE (17:29)
[2019-10-06] MEDS ORDERED: Amoxicillin/Clavulanate K 875-125 MG Tab PO ONE (17:29)
--- NOTE | 2019-10-06 17:39 | EDM.PDOC ---
ED HPI GENERAL MEDICAL PROBLEM - General Chief Complaint: ENT Problem Stated Complaint: DENTAL COMPLAINT Time Seen by Provider: 10/06/19 17:23 Source of Information: Reports: Patient, RN Notes Reviewed History Limitations: Reports: No Limitations - History of Present Illness INITIAL COMMENTS - FREE TEXT/NARRATIVE: Patient is a 24 year old female who presents to the ED for the evaluation of her dental complaint. She states that there is a tooth on the left upper jaw that is causing the issue. Patient notes that this started this morning at around 9 AM. She took 1000 mg of Tylenol at around 11:30, and 500 mg at around 1:30pm. She states she took about 400 mg ibuprofen at about 3 PM. She states this did not help much. She notes that her dentition is in very poor repair, she did try to call the dentist but is not able to get in there until October 27. Patient states that she is breast-feeding but does not believe she could be she is on control. Patient denies any sort of fever/chills, nausea/vomiting/diarrhea. She denies any other sick-like symptoms like cough/ shortness of breath, or any difficulty swallowing. - Related Data Allergies Allergy/AdvReac Type Severity Reaction Status Date / Time No Known Allergies Allergy Verified 10/06/19 16:25 Home Meds: Home Meds Pnv No.95/Ferrous Fum/Folic AC [ Vitamin Tablet] 1 tab PO DAILY [History] Ibuprofen [Motrin] 600 mg PO Q6H PRN tablet 05/26/19 [Rx] Amoxicillin/Clavulanate K [Augmentin 875-125 MG] 1 tab PO BID #14 tablet [Rx] Naproxen [Naprosyn] 500 mg PO Q12HR #14 tab 10/06/19 [Rx] Past Medical History HEENT History: Reports: Impaired Vision Other HEENT History: glasses Gastrointestinal History: Reports: GERD Genitourinary History: Reports: UTI, Recurrent [employer] History: Reports: , Spontaneous Musculoskeletal History: Reports: Fracture, Other (See Below) Other Musculoskeletal History: Carpal tunnel Neurological History: Reports: Migraines - Past Surgical History HEENT Surgical History: Reports: Myringotomy w Tube(s) GI Surgical History: Reports: Cholecystectomy, Colonoscopy, EGD Female Surgical History: Reports: Breast Biopsy, D&C, Other (See Below) Other Female Surgeries/Procedures: cyst removal of right breast Oncologic Surgical History: Reports: Biopsy of Breast - History Comment History Comment: vits Social & Family History - Family History Family Medical History: Noncontributory - Tobacco Use Smoking Status *Q: Never Smoker - Caffeine Use Caffeine Use: Reports: Coffee, Soda - Living Situation & Occupation Living situation: Reports: Occupation: Employed ED ROS ENT - Review of Systems Review Of Systems: Comprehensive ROS is negative, except as noted in HPI. ED EXAM, ENT - Physical Exam Exam: See Below Exam Limited By: No Limitations General Appearance: Alert, WD/WN, No Apparent Distress Ears: Normal External Exam Nose: Normal Inspection Mouth/Throat: Normal Inspection, Dental Pain (Dentition is in very poor repair throughout the mouth, the tooth in question does appear to be decayed away, to only about a quarter of the tooth left on the inner aspect of the left upper jaw. Patient notes this is where most of her pain is. There is a little bit of redness along the gingival gumline. No obvious abscess noted.) Head: Atraumatic, Normocephalic Neck: Normal Inspection Respiratory/Chest: No Respiratory Distress, Lungs Clear, Normal Breath Sounds, No Accessory Muscle Use, Chest Non-Tender Cardiovascular: Normal Peripheral Pulses, Regular Rate, Rhythm, No Murmur Extremities: Normal Inspection, Normal Capillary Refill Neurological: Alert, Oriented, Normal Cognition, No Motor/Sensory Deficits Psychiatric: Normal Affect, Normal Mood Skin: Warm, Dry, Intact, Normal Color, No Rash Course - Vital Signs Last Recorded V/S: Last Vital Signs Temp 97.5 F 10/06/19 16:23 Pulse 76 10/06/19 16:23 Resp 14 10/06/19 16:23 BP 128/88 10/06/19 16:23 Pulse Ox 97 10/06/19 16:23 - Orders/Labs/Meds Orders: Active Orders 24 hr Category Date Time Status Amoxicillin/Clavulanate K [Augmentin 875 MG/125 MG] Med 10/06/19 17:29 Once 1 tab PO ONETIME ONE Ketorolac [Toradol] Med 10/06/19 17:29 Once 60 mg IM ONETIME ONE - Re-Assessments/Exams Free Text/Narrative Re-Assessment/Exam: 10/06/19 17:40 Patient presents to the ED for the evaluation of her dental complaint. Have ordered 60 mg IM Toradol, and Augmentin for management. Will patient be discharged home with Naprosyn and Augmentin. Departure - Departure Time of Disposition: 17:41 Disposition: Home, Self-Care 01 Condition: Good Clinical Impression: Pain due to dental caries - Discharge Information *PRESCRIPTION DRUG MONITORING PROGRAM REVIEWED*: No *COPY OF PRESCRIPTION DRUG MONITORING REPORT IN PATIENT AROLDO: No Instructions: Diet and Dental Disease Referrals: Amanda Gonsales MD [Primary Care Provider] - Additional Instructions: You have been evaluated in the ED for your dental pain. You have been provided with a script for Augmentin. This was electronically sent to the [place] pharmacy located in the [employer] [facility]. Please take this medication as directed. (1 tab twice daily for 7 days or until gone). This antibiotic can cause diarrhea, recommend that you start a probiotic while taking this medication. You were given a prescription for Naprosyn, Please take 1 tab every 12 hours for pain relief. You may use hot pack/ ice packs to the affected area as tolerated in 15-20 minute intervals. You will ultimately need to find a dentist to provide definitive management of your dental pain. The [facility] in [place], [place], , is a clinic that has been known to take people that do not have dental insurance, and may provide payment plans. You might want to check with this provider, regarding your dental pain. Please return to the ED if your symptoms change or worsen. Sepsis Event Note - Evaluation Sepsis Screening Result: No Definite Risk - Focused Exam Vital Signs: Vital Signs Temp Pulse Resp BP Pulse Ox 10/06/19 16:23 97.5 F 76 14 128/88 97 Date Exam was Performed: 10/06/19 Time Exam was Performed: 17:30 - My Orders Last 24 Hours: My Active Orders 10/06/19 17:29 Amoxicillin/Clavulanate K [Augmentin 875 MG/125 MG] 1 tab PO ONETIME ONE Ketorolac [Toradol] 60 mg IM ONETIME ONE - Assessment/Plan Last 24 Hours: My Active Orders 10/06/19 17:29 Amoxicillin/Clavulanate K [Augmentin 875 MG/125 MG] 1 tab PO ONETIME ONE Ketorolac [Toradol] 60 mg IM ONETIME ONE
== END 2019-10-06 18:00 | disposition home or self-care (01) ==
LOC: JD.ED 16:05
DX: K02.9 Dental caries, unspecified (principal); K21.9 Gastro-esophageal reflux disease without esophagitis; G43.909 Migraine, unspecified, not intractable, without status migrainosus; Z90.89 Acquired absence of other organs; Z79.899 Other long term (current) drug therapy
CPT/HCPCS: 96372; 99282; A9270; J1885

== ENCOUNTER 2020-05-25 08:48 | Day surgery (SDC) | payer OTHER ==
[~2020-05-25 08:48] MED LIST changes: +Lactated Ringers 1,000 ML IV SCH; +Lidocaine 1%/Sod Bicarbonate in NS 8.4% 1 ML Syringe IDERM PRN; -Nalbuphine 10 MG/ML Syringe IVPUSH PRN; -Oxytocin/Lactated Ringers 10 UNIT/1,000 ML BAG IV SCH
[2020-05-25] MEDS ORDERED: Propofol 200 MG/20 ML SDV ONE (10:07)
[2020-05-25] MEDS ORDERED: Ketamine 500 mg/10 ML MDV ONE (10:07)
[2020-05-25] MEDS ORDERED: Lidocaine 1% 4 ML ONE (10:07)
[2020-05-25] MEDS ORDERED: Midazolam 1 MG/ML 2 ML SDV ONE (10:07)
[2020-05-25] MEDS ORDERED: fentaNYL 100 MCG/2 ML SDV ONE (10:07)
--- NOTE | 2020-05-25 10:53 | PCM.PRNOTE ---
- Free Text/Narrative Note: Operative Report Date of Procedure: May 25, 2020 Pre Op Diagnosis: Positive FIT test, abdominal pain, heartburn, rectal bleeding, change in bowel habits Post-Op Diagnosis: Same Operative Procedures: 1. EGD with biopsy 2. Colonoscopy to the cecum Primary Surgeon: Earnestine Oliver MD Anesthesia Provider: Stephanie Dorado CRNA Anesthesia Technique: MAC IV Fluid Replacement, Intraop: 700cc crystalloid Output, Urine Amount: 0cc EBL in mLs: 0cc Findings: 1.. Bile reflux 2. Gastritis 3. Internal hemorrhoids Specimens: Gastric antrum biopsies Drain/Tubes: None Indication: The patient is a 25-year-old lady who presented to the clinic for endoscopy evaluation with a history of a positive FIT test. The patient reported many symptoms, including abdominal pain, heartburn, rectal bleeding, change in bowel habits. The patient was consented for a diagnostic EGD and colonoscopy. Risks of bleeding, and perforation were discussed, and the patient agreed to the risks and wished to proceed. Description of the procedure: The patient was taken back to the endoscopy suite, and placed in the left late ral decubitus position. A bite block was placed. The patient was sedated with MAC anesthesia. The Olympus video endoscope was inserted into the oropharynx and guided under direct vision into the esophagus, stomach, and duodenum. The duodenal bulb and second portion of the duodenum were unremarkable. The gastric antrum was inspected and cold biopsy forceps were used to take tissue samples for H. pylori. There was erythematous mucosa with a striped pattern most concentrated in the antrum and extending somewhat into the distal body of the stomach the scope was withdrawn to the stomach and retroflexed. There was bilious fluid pooling in the stomach, this was suctioned and removed. No erosions or ulcers were noted. The scope was withdrawn to the esophagus. No Barretts esophagus changes were noted. The endoscope was then withdrawn Next, anorectal examination was performed. No lesions, masses or hemorrhoids were noted externally or on palpation. The scope was placed into the rectum and advanced to cecum. Upon reaching the cecum, and the patients cecum was entered. There was minimal tortuosity of the colon. The ileocecal valve was well visualized and the appendiceal orifice identified. At this point, the scope was slowly withdrawn, paying attention to the mucosa. The patient had good bowel prep, 85-90% of the mucosa was visible. No abnormality was noted. In the rectum, scope was retroflexed and some enlarged internal hemorrhoidal tissue was noted. The scope was placed back in the lumen and excess air was aspirated. The scope was removed. The patient tolerated the procedure very well. Complications: None apparent Condition: The patient was transported to PACU in stable condition. Earnestine Oliver MD General Surgery
--- NOTE | 2020-05-25 10:53 | PCM.OPNOTE ---
- General Post-Op/Procedure Note Date of Surgery/Procedure: 05/25/20 Operative Procedure(s): EGD and colonoscopy Findings: 1. Bile reflux 2. Gastritis 3. Internal hemorrhoids Pre Op Diagnosis: Positive FIT test, Abdominal pain, reflux, rectal bleeding, change in bowel habits Post-Op Diagnosis: same Anesthesia Technique: MAC Primary Surgeon: Earnestine Oliver Anesthesia Provider: Stephanie Dorado Pathology: 1. Gastric antrum Fluid Replacement, Intraop: 700 EBL in mLs: 0 Complications: none apparent Condition: Good
--- NOTE | 2020-05-25 11:03 | PCM.PREANE ---
Preanesthetic Assessment - Procedure Proposed Procedure: EGD/Colonoscopy - Anesthesia/Transfusion/Family Hx Anesthesia History: Prior Anesthesia Without Reaction Family History of Anesthesia Reaction: No Transfusion History: No Prior Transfusion(s) - Review of Systems General: No Symptoms Pulmonary: No Symptoms Cardiovascular: Lightheadedness (Dizzy spells no fainting, has seen a doctor for it in the past with no findings that would explain her dizziness.) Gastrointestinal: Other (GERD/Gastritis) Neurological: Headache (Migraines) Other: Reports: Liver Problems (Fatty Liver), Depression - Physical Assessment NPO Status Date: 05/24/20 NPO Status Time: 22:30 Vital Signs: Last Vital Signs Temp 36.4 C 05/25/20 08:55 Pulse 79 05/25/20 08:55 Resp 20 05/25/20 08:55 BP 120/78 05/25/20 08:55 Pulse Ox 97 05/25/20 08:55 Height: 1.63 m Weight: 104.326 kg ASA Class: 3 Mental Status: Alert & Oriented x3 Airway Class: Mallampati = 3 Dentition: Reports: Normal Dentition Thyro-Mental Finger Breadths: 3 Mouth Opening Finger Breadths: 3 ROM/Head Extension: Full Lungs: Clear to Auscultation, Normal Respiratory Effort Cardiovascular: Regular Rate, Regular Rhythm - Lab Values: Laboratory Last Values Urine HCG, Qual Negative (NEGATIVE) 05/25/20 08:50 - Allergies Allergies/Adverse Reactions: Allergies Allergy/AdvReac Type Severity Reaction Status Date / Time dog dander Allergy Sneezing Verified 05/24/20 12:02 horse dander Allergy Sneezing Verified 05/24/20 12:02 - Acknowledgements Anesthesia Type Planned: MAC Pt an Appropriate Candidate for the Planned Anesthesia: Yes Alternatives and Risks of Anesthesia Discussed w Pt/Guardian: Yes Pt/Guardian Understands and Agrees with Anesthesia Plan: Yes PreAnesthesia Questionnaire HEENT History: Reports: Impaired Vision Other HEENT History: glasses Cardiovascular History: Reports: None Respiratory History: Reports: None Gastrointestinal History: Reports: Gastritis, GERD, Other (See Below) Other Gastrointestinal History: duodenitis, esophagitis, elevated LFTs, hepatic steatosis Genitourinary History: Reports: UTI, Recurrent 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: , 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 Musculoskeletal History: Reports: Fracture, Other (See Below) Other Musculoskeletal History: Carpal tunnel Neurological History: Reports: Headaches, Chronic, Migraines, Other (See Below) Other Neuro History: dizziness Psychiatric History: Reports: None Endocrine/Metabolic History: Reports: None Hematologic History: Reports: None Immunologic History: Reports: None Oncologic (Cancer) History: Reports: None Dermatologic History: Reports: None - Infectious Disease History Infectious Disease History: Reports: None - Past Surgical History Head Surgeries/Procedures: Reports: None HEENT Surgical History: Reports: Myringotomy w Tube(s), Oral Surgery Cardiovascular Surgical History: Reports: None Respiratory Surgical History: Reports: None GI Surgical History: Reports: Cholecystectomy, Colonoscopy, EGD Female Surgical History: Reports: Breast Biopsy, D&C, Other (See Below) Other Female Surgeries/Procedures: cyst removal of right breast Endocrine Surgical History: Reports: None Neurological Surgical History: Reports: None Musculoskeletal Surgical History: Oncologic Surgical History: Reports: Biopsy of Breast Dermatological Surgical History: Reports: None - History Comment History Comment: vits - SUBSTANCE USE Tobacco Use Status *Q: Former Tobacco User Recreational Drug Use History: No - HOME MEDS Home Medications: Home Meds Acetaminophen [Tylenol] 650 mg PO Q4H PRN 05/24/20 [History] Cetirizine HCl [Zyrtec] 10 mg PO DAILY PRN 05/24/20 [History] Norelgestromin/Ethin.Estradiol [Xulane Patch] 1 patch TOP Q7D 05/24/20 [History] Sertraline HCl [Zoloft] 50 mg PO DAILY 05/24/20 [History] - CURRENT (IN HOUSE) MEDS Current Meds: Current Medications Lactated Ringer's (Ringers, Lactated) 1,000 mls @ 125 mls/hr IV ASDIRECTED MICHAEL Stop: 05/25/20 23:00 Last Admin: 05/25/20 09:20 Dose: 125 mls/hr Documented by: Lidocaine/Sodium Bicarbonate (Buffered Lidocaine 1% In Ns 8.4%) 0.25 ml IDERM ONETIME PRN PRN Reason: Prior to IV Start Stop: 05/25/20 23:00 Sodium Chloride (Saline Flush) 10 ml FLUSH ASDIRECTED PRN PRN Reason: Keep Vein Open Stop: 05/25/20 23:00 Discontinued Medications Fentanyl (Sublimaze) Confirm Administered Dose 100 mcg .ROUTE .STK-MED ONE Stop: 05/25/20 10:08 Lidocaine HCl (Xylocaine-Mpf 1%) Confirm Administered Dose 4 mls @ as directed .ROUTE .ST-MED ONE Stop: 05/25/20 10:08 Ketamine HCl (Ketalar) Confirm Administered Dose 500 mg .ROUTE .STK-MED ONE Stop: 05/25/20 10:08 Midazolam HCl (Versed 1 Mg/Ml) Confirm Administered Dose 2 mg .ROUTE .STK-MED ONE Stop: 05/25/20 10:08 Propofol (Diprivan 20 Ml) Confirm Administered Dose 400 mg .ROUTE .STK-MED ONE Stop: 05/25/20 10:08
--- NOTE | 2020-05-25 11:04 | PCM48HPAN ---
Post Anesthesia Note - EVALUATION WITHIN 48HRS OF ANESTHETIC Vital Signs in Normal Range: Yes Patient Participated in Evaluation: Yes Respiratory Function Stable: Yes Airway Patent: Yes Cardiovascular Function Stable: Yes Hydration Status Stable: Yes Pain Control Satisfactory: Yes Nausea and Vomiting Control Satisfactory: Yes Mental Status Recovered: Yes Vital Signs: Last Vital Signs Temp 36.4 C 05/25/20 08:55 Pulse 79 05/25/20 08:55 Resp 20 05/25/20 08:55 BP 120/78 05/25/20 08:55 Pulse Ox 97 05/25/20 08:55
[2020-05-25 11:33] VITALS: BP 108/50; PULSE 71
== END 2020-05-25 11:25 | disposition home or self-care (01) ==
LOC: JD.SDS 08:48
PROVIDERS: ATTEND Surgery
DX: R19.4 Change in bowel habit (principal); K62.5 Hemorrhage of anus and rectum; K29.50 Unspecified chronic gastritis without bleeding; K21.9 Gastro-esophageal reflux disease without esophagitis; K64.8 Other hemorrhoids; Z87.891 Personal history of nicotine dependence; Z79.899 Other long term (current) drug therapy
CPT/HCPCS: 43239; 45378; 81025; J2001; J2250; J2704; J3010; J7120; 00813

== ENCOUNTER 2020-11-18 02:31 | Emergency (ER) | payer OTHER ==
[2020-11-18 02:47] VITALS: BP 156/98; PULSE 84
[2020-11-18] MEDS ORDERED: Sodium Chloride 0.9% 10 ML Syringe FLUSH PRN (03:06)
[2020-11-18] MEDS ORDERED: Ketorolac 30 MG/ML SDV IVPUSH ONE (03:08)
--- NOTE | 2020-11-18 06:29 | EDM.PDOC ---
ED HPI GENERAL MEDICAL PROBLEM - General Chief Complaint: Abdominal Pain Stated Complaint: RIGHT SIDE PAIN Time Seen by Provider: 11/18/20 02:52 Source of Information: Reports: Patient History Limitations: Reports: No Limitations - History of Present Illness INITIAL COMMENTS - FREE TEXT/NARRATIVE: Patient is a 25-year-old female is complaining of having right abdominal flank pain which is kept her up all night. Patient was unable to fall asleep since 1 AM. Patient has had similar symptoms recently and states that her pain is much worse with movement and is approximately 4 out of 10 otherwise. She denies any dysuria or hematuria. She denies any fever or shaking chills. She states the pain is not worse with eating. She has had her gallbladder removed. She still has her appendix. She denies any vaginal discharge. She has had no vomiting or diarrhea. Patient has not taken anything for current pain symptoms. 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, NSAIDS Right Lower Abdomen Pain Score (Numeric/FACES): 7 - Related Data Allergies Allergy/AdvReac Type Severity Reaction Status Date / Time dog dander Allergy Sneezing Verified 11/18/20 02:46 horse dander Allergy Sneezing Verified 11/18/20 02:46 Home Meds: Home Meds Norelgestromin/Ethin.Estradiol [Xulane 150-35 Mcg/Day Patch] 1 patch TOP Q7D 05/24/20 [History] Allopurinol [Zyloprim] 300 mg PO DAILY 11/18/20 [History] Amoxicillin 500 mg PO TID 11/18/20 [History] Hydrocodone/Acetaminophen [Hydrocodone-Acetamin 5-325 mg] 1 each PO QID PRN #14 tab 11/18/20 [Rx] Ondansetron [Zofran ODT] 4 mg PO Q6H PRN #7 tab.dis 11/18/20 [Rx] Pantoprazole Sodium [Protonix] 20 mg PO DAILY 11/18/20 [History] Sulfamethoxazole/Trimethoprim [Bactrim Ds Tablet] 1 each PO BID #10 tablet 11/18/20 [Rx] Past Medical History HEENT History: Reports: Impaired Vision Other HEENT History: glasses Cardiovascular History: Reports: None Respiratory History: Reports: None Gastrointestinal History: Reports: Gastritis, GERD, Other (See Below) Other Gastrointestinal History: duodenitis, esophagitis, elevated LFTs, hepatic steatosis Genitourinary History: Reports: UTI, Recurrent 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: , 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 Musculoskeletal History: Reports: Fracture, Other (See Below) Other Musculoskeletal History: Carpal tunnel Neurological History: Reports: Headaches, Chronic, Migraines, Other (See Below) Other Neuro History: dizziness Psychiatric History: Reports: None Endocrine/Metabolic History: Reports: Obesity/BMI 30+ Hematologic History: Reports: None Immunologic History: Reports: None Oncologic (Cancer) History: Reports: None Dermatologic History: Reports: None - Infectious Disease History Infectious Disease History: Reports: None - Past Surgical History HEENT Surgical History: Reports: Myringotomy w Tube(s), Oral Surgery GI Surgical History: Reports: Cholecystectomy, Colonoscopy, EGD Female Surgical History: Reports: Breast Biopsy, D&C, Other (See Below) Other Female Surgeries/Procedures: cyst removal of right breast Oncologic Surgical History: Reports: Biopsy of Breast - History Comment History Comment: vits Social & Family History - Family History Family Medical History: No Pertinent Family History - Tobacco Use Tobacco Use Status *Q: Current Some Day Tobacco User Years of Tobacco use: 5 Packs/Tins Daily: 0.1 Used Tobacco, but Quit: No - Caffeine Use Caffeine Use: Reports: Coffee, Soda - Recreational Drug Use Recreational Drug Use: No - Living Situation & Occupation Living situation: Reports: Occupation: Employed ED ROS GENERAL - Review of Systems Review Of Systems: Comprehensive ROS is negative, except as noted in HPI. ED EXAM, RENAL/ - Physical Exam Exam: See Below Exam Limited By: No Limitations General Appearance: Alert, No Apparent Distress Head: Atraumatic, Normocephalic Neck: Normal Inspection, Supple Respiratory/Chest: No Respiratory Distress, Lungs Clear Cardiovascular: Regular Rate, Rhythm, No JVD GI/Abdominal: Normal Bowel Sounds, Soft, No Distention, Tender. No: Guarding, Rigid, Rebound Back Exam: Normal Inspection Extremities: Normal Inspection, No Pedal Edema Neurological: Alert, Oriented Skin Exam: Warm, Dry, Normal Color Lymphatic: No Adenopathy Course - Vital Signs Text/Narrative:: Patient's lab work is unremarkable except for trace leukocytes in her urine. Patient CT scan shows she does have a 2 mm lower pole right renal stone and partially duplicated right ureter. No discrete or measurable urethral stones. Otherwise CT is unremarkable. Patient is feeling mildly better with Toradol and I will discharge her with a prescription for [place] and Zofran and a 5-day course of Bactrim. Recommended she follow-up with a urologist for her CT findings. She is instructed to return to ER if her symptoms are worse, fever or chills, vomiting or increased pain. Last Recorded V/S: Last Vital Signs Temp 97 F 11/18/20 02:42 Pulse 84 11/18/20 02:42 Resp 16 11/18/20 02:42 BP 156/98 H 11/18/20 02:42 Pulse Ox 99 11/18/20 02:42 - Orders/Labs/Meds Orders: Active Orders 24 hr Category Date Time Status Peripheral IV Care [RC] . DIRECTED Care 11/18/20 03:08 Active Abdomen Pelvis wo Cont [CT] Stat Exams 11/18/20 03:06 Taken Sodium Chloride 0.9% [Saline Flush] Med 11/18/20 03:06 Active 10 ml FLUSH ASDIRECTED PRN Peripheral IV Insertion Adult [OM.PC] Routine Oth 11/18/20 03:06 Ordered Medication Orders Sodium Chloride (Sodium Chloride 0.9% 10 Ml Syringe) 10 ml FLUSH ASDIRECTED PRN PRN Reason: Keep Vein Open Last Admin: 11/18/20 03:17 Dose: 10 ml Documented by: DELROY Labs: Laboratory Tests 11/18/20 11/18/20 11/18/20 Range/Units 02:51 02:51 03:22 WBC 11.26 H (3.98-10.04) K/mm3 RBC 4.31 (3.98-5.22) M/mm3 Hgb 13.1 (11.2-15.7) gm/dl Hct 39.9 (34.1-44.9) % MCV 92.6 (79.4-94.8) fl MCH 30.4 (25.6-32.2) pg MCHC 32.8 (32.2-35.5) g/dl RDW Std Deviation 43.0 (36.4-46.3) fL Plt Count 287 (182-369) K/mm3 MPV 10.2 (9.4-12.3) fl Neutrophils % (Manual) 60 (40-60) % Band Neutrophils % 4 (0-10) % Lymphocytes % (Manual) 28 (20-40) % Atypical Lymphs % 0 % Monocytes % (Manual) 4 (2-10) % Eosinophils % (Manual) 2 (0.7-5.8) % Basophils % (Manual) 2 H (0.1-1.2) Platelet Estimate Adequate Plt Morphology Comment Normal RBC Morph Comment Normal Sodium 141 (136-145) mEq/L Potassium 3.8 (3.5-5.1) mEq/L Chloride 104 (98-107) mEq/L Carbon Dioxide 24 (21-32) mEq/L Anion Gap 16.8 H (5-15) BUN 12 (7-18) mg/dL Creatinine 0.7 (0.55-1.02) mg/dL Est Cr Clr Drug Dosing 106.09 mL/min Estimated GFR (MDRD) > 60 (>60) mL/min BUN/Creatinine Ratio 17.1 (14-18) Glucose 114 H (70-99) mg/dL Calcium 9.2 (8.5-10.1) mg/dL Total Bilirubin 0.2 (0.2-1.0) mg/dL AST 21 (15-37) U/L ALT 31 (14-59) U/L Alkaline Phosphatase 79 (46-116) U/L Total Protein 7.2 (6.4-8.2) g/dl Albumin 3.3 L (3.4-5.0) g/dl Globulin 3.9 gm/dL Albumin/Globulin Ratio 0.9 L (1-2) Lipase 87 (73-393) U/L Urine Color Yellow (Yellow) Urine Appearance Clear (Clear) Urine pH 6.5 (5.0-8.0) Ur Specific [place] 1.020 (1.005-1.030) Urine Protein Negative (Negative) Urine Glucose (UA) Negative (Negative) Urine Ketones Negative (Negative) Urine Occult Blood Negative (Negative) Urine Nitrite Negative (Negative) Urine Bilirubin Negative (Negative) Urine Urobilinogen 0.2 (0.2-1.0) Ur Leukocyte Esterase Trace H (Negative) Urine HCG, Qual (NEGATIVE) 11/18/20 Range/Units 03:22 WBC (3.98-10.04) K/mm3 RBC (3.98-5.22) M/mm3 Hgb (11.2-15.7) gm/dl Hct (34.1-44.9) % MCV (79.4-94.8) fl MCH (25.6-32.2) pg MCHC (32.2-35.5) g/dl RDW Std Deviation (36.4-46.3) fL Plt Count (182-369) K/mm3 MPV (9.4-12.3) fl Neutrophils % (Manual) (40-60) % Band Neutrophils % (0-10) % Lymphocytes % (Manual) (20-40) % Atypical Lymphs % % Monocytes % (Manual) (2-10) % Eosinophils % (Manual) (0.7-5.8) % Basophils % (Manual) (0.1-1.2) Platelet Estimate Plt Morphology Comment RBC Morph Comment Sodium (136-145) mEq/L Potassium (3.5-5.1) mEq/L Chloride (98-107) mEq/L Carbon Dioxide (21-32) mEq/L Anion Gap (5-15) BUN (7-18) mg/dL Creatinine (0.55-1.02) mg/dL Est Cr Clr Drug Dosing mL/min Estimated GFR (MDRD) (>60) mL/min BUN/Creatinine Ratio (14-18) Glucose (70-99) mg/dL Calcium (8.5-10.1) mg/dL Total Bilirubin (0.2-1.0) mg/dL AST (15-37) U/L ALT (14-59) U/L Alkaline Phosphatase (46-116) U/L Total Protein (6.4-8.2) g/dl Albumin (3.4-5.0) g/dl Globulin gm/dL Albumin/Globulin Ratio (1-2) Lipase (73-393) U/L Urine Color (Yellow) Urine Appearance (Clear) Urine pH (5.0-8.0) Ur Specific [place] (1.005-1.030) Urine Protein (Negative) Urine Glucose (UA) (Negative) Urine Ketones (Negative) Urine Occult Blood (Negative) Urine Nitrite (Negative) Urine Bilirubin (Negative) Urine Urobilinogen (0.2-1.0) Ur Leukocyte Esterase (Negative) Urine HCG, Qual Negative (NEGATIVE) Meds: Medications Generic Name Dose Route Start Last Admin Trade Name Freq PRN Reason Stop Dose Admin Sodium Chloride 10 ml 11/18/20 03:06 11/18/20 03:17 Sodium Chloride 0.9% 10 Ml Syringe FLUSH 10 ml ASDIRECTED PRN Administration Keep Vein Open Discontinued Medications Generic Name Dose Route Start Last Admin Trade Name Freq PRN Reason Stop Dose Admin Ketorolac Tromethamine 30 mg 11/18/20 03:08 11/18/20 03:17 Ketorolac 30 Mg/Ml Sdv IVPUSH 11/18/20 03:09 30 mg ONETIME ONE Administration Departure - Departure Time of Disposition: 06:29 Disposition: Home, Self-Care 01 Condition: Good Clinical Impression: Abdominal pain - Discharge Information Instructions: Abdominal Pain, Adult, [id number] Referrals: Amanda Gonsales EXPLORATION MANAGER [Primary Care Provider] - Inocente Bower MD [Ordering Only Provider] - Additional Instructions: Increase fluids. Return to ER symptoms are worse. Follow-up with urologist soon as possible. Meds as needed and prescribed. Sepsis Event Note (ED) - Evaluation Sepsis Screening Result: No Definite Risk - Focused Exam Vital Signs: Vital Signs Temp Pulse Resp BP Pulse Ox 11/18/20 02:42 97 F 84 16 156/98 H 99 - My Orders Last 24 Hours: My Active Orders 11/18/20 03:06 Abdomen Pelvis wo Cont [CT] Stat Sodium Chloride 0.9% [Saline Flush] 10 ml FLUSH ASDIRECTED PRN Peripheral IV Insertion Adult [OM.PC] Routine 11/18/20 03:08 Peripheral IV Care [RC] . DIRECTED - Assessment/Plan Last 24 Hours: My Active Orders 11/18/20 03:06 Abdomen Pelvis wo Cont [CT] Stat Sodium Chloride 0.9% [Saline Flush] 10 ml FLUSH ASDIRECTED PRN Peripheral IV Insertion Adult [OM.PC] Routine 11/18/20 03:08 Peripheral IV Care [RC] . DIRECTED
--- NOTE | 2020-11-18 07:39 | CT ---
CT abdomen and pelvis Technique: Multiple axial sections were obtained from above the dome of the diaphragm inferiorly to the pubic symphysis. Intravenous contrast and oral contrast were not given. Reconstructed coronal and sagittal images were obtained. Comparison: No prior CT abdomen or pelvis study is available. Findings: Visualized lung bases show nothing acute. Liver shows mild fatty infiltration. Spleen size is normal. Adrenal glands show no nodule. Surgical clips are noted from prior cholecystectomy. Right kidney shows a small lower pole calculus which is nonobstructing and measures approximately 3 mm. No ureteral dilatation or ureteral stone is seen. Pancreas shows no discrete abnormality. Surgical clips are seen from prior cholecystectomy. Abdominal aorta shows no aneurysm. No retroperitoneal adenopathy or mesenteric abnormalities are seen. Appendix is seen which is normal in size. No pelvic mass or adenopathy is seen. No bowel dilatation is seen. Bone window settings were reviewed which show no acute osseous abnormality. Mild scattered degenerative change is noted within the spine. Impression: 1. Small nonobstructing calculus within the lower pole of the right kidney. 2. Normal appendix is seen. 3. Fatty infiltration within the liver with prior cholecystectomy. 4. Nothing acute is appreciated on noncontrast CT study of the abdomen and pelvis. Diagnostic code #2 I agree with preliminary report from [facility], finalized on 11/18/20, 6:34 AM CDT, code 1
== END 2020-11-18 06:52 | disposition home or self-care (01) ==
LOC: JD.ED 02:31
DX: R10.9 Unspecified abdominal pain (principal); K21.9 Gastro-esophageal reflux disease without esophagitis; E66.9 Obesity, unspecified; Z68.30 Body mass index [BMI] 30.0-30.9, adult; Z91.09 Other allergy status, other than to drugs and biological substances; Z79.899 Other long term (current) drug therapy; Z72.0 Tobacco use
CPT/HCPCS: 36415; 74176; 80053; 81003; 81025; 83690; 85007; 85027; 96374; 99284; J1885

== ENCOUNTER 2020-11-25 10:58 | Emergency (ER) | payer OTHER ==
[2020-11-25 11:14] VITALS: BP 134/78; PULSE 87
[2020-11-25] MEDS ORDERED: Sodium Chloride 0.9% 10 ML Syringe FLUSH PRN (11:29)
--- NOTE | 2020-11-25 12:52 | EDM.PDOC ---
ED HPI GENERAL MEDICAL PROBLEM - General Chief Complaint: Genitourinary Problem Stated Complaint: KIDNEY ISSUES ARE NOT IMPROVING Time Seen by Provider: 11/25/20 11:05 Source of Information: Reports: Patient History Limitations: Reports: No Limitations - History of Present Illness INITIAL COMMENTS - FREE TEXT/NARRATIVE: The patient presents with bilateral low back pain. This has been going on for over 1.5 weeks. She was seen here 1 week ago and her CT showed a 3mm nonobstructing stone in the right kidney. She still has pain and it is on both sides. She has no nausea, vomiting, fever, chills, cough, chest pain, shortness of breath, nausea or vomiting. She does have some mild lower abdominal pain. She has no dysuria. She did start her period 2 weeks early. Onset: Gradual Duration: Week(s): (1.5) Location: Reports: Abdomen, Back Quality: Reports: Sharp Severity: Moderate Improves with: Reports: None Worsens with: Reports: None Associated Symptoms: Denies: Chest Pain, Cough, Fever/Chills, Headaches, Nausea/Vomiting, Shortness of Breath Bilateral Lower Back Pain Score (Numeric/FACES): 7 - Related Data Allergies Allergy/AdvReac Type Severity Reaction Status Date / Time dog dander Allergy Sneezing Verified 11/25/20 11:05 horse dander Allergy Sneezing Verified 11/25/20 11:05 Home Meds: Home Meds Norelgestromin/Ethin.Estradiol [Xulane 150-35 Mcg/Day Patch] 1 patch TOP Q7D 05/24/20 [History] Allopurinol [Zyloprim] 300 mg PO DAILY 11/18/20 [History] Hydrocodone/Acetaminophen [Hydrocodone-Acetamin 5-325 mg] 1 each PO QID PRN #14 tab 11/18/20 [Rx] Ondansetron [Zofran ODT] 4 mg PO Q6H PRN #7 tab.dis 11/18/20 [Rx] Pantoprazole Sodium [Protonix] 20 mg PO DAILY 11/18/20 [History] Cyclobenzaprine [Flexeril] 10 mg PO TID PRN #20 tab 11/25/20 [Rx] Hydrocodone/Acetaminophen [Hydrocodone-Acetamin 5-325 mg] 1 - 2 each PO Q6H PRN #15 tablet 11/25/20 [Rx] Past Medical History HEENT History: Reports: Impaired Vision Other HEENT History: glasses Cardiovascular History: Reports: None Respiratory History: Reports: None Gastrointestinal History: Reports: Gastritis, GERD, Other (See Below) Other Gastrointestinal History: duodenitis, esophagitis, elevated LFTs, hepatic steatosis Genitourinary History: Reports: Renal Calculus, UTI, Recurrent MONITORING COORDINATOR History: Reports: , Spontaneous Musculoskeletal History: Reports: Fracture, Other (See Below) Other Musculoskeletal History: Carpal tunnel Neurological History: Reports: Headaches, Chronic, Migraines, Other (See Below) Other Neuro History: dizziness Psychiatric History: Reports: None Endocrine/Metabolic History: Reports: Obesity/BMI 30+ Hematologic History: Reports: None Immunologic History: Reports: None Oncologic (Cancer) History: Reports: None Dermatologic History: Reports: None - Infectious Disease History Infectious Disease History: Reports: Chicken Pox - Past Surgical History Head Surgeries/Procedures: Reports: None HEENT Surgical History: Reports: Myringotomy w Tube(s), Oral Surgery Cardiovascular Surgical History: Reports: None Respiratory Surgical History: Reports: None GI Surgical History: Reports: Cholecystectomy, Colonoscopy, EGD Female Surgical History: Reports: Breast Biopsy, D&C, Other (See Below) Other Female Surgeries/Procedures: cyst removal of right breast Endocrine Surgical History: Reports: None Neurological Surgical History: Reports: None Oncologic Surgical History: Reports: Biopsy of Breast Dermatological Surgical History: Reports: None - History Comment History Comment: vits Social & Family History - Family History Family Medical History: No Pertinent Family History - Tobacco Use Tobacco Use Status *Q: Former Tobacco User Used Tobacco, but Quit: Yes Month/Year Tobacco Last Used: 10/2010 - Caffeine Use Caffeine Use: Reports: Coffee - Recreational Drug Use Recreational Drug Use: No - Living Situation & Occupation Living situation: Reports: Occupation: Employed ED ROS GENERAL - Review of Systems Review Of Systems: See Below Constitutional: Reports: No Symptoms HEENT: Reports: No Symptoms Respiratory: Reports: No Symptoms Cardiovascular: Reports: No Symptoms Endocrine: Reports: No Symptoms GI/Abdominal: Reports: Abdominal Pain. Denies: Nausea, Vomiting : Denies: Dysuria Musculoskeletal: Reports: Back Pain Skin: Reports: No Symptoms Neurological: Reports: No Symptoms ED EXAM, GI/ABD - Physical Exam Exam: See Below Exam Limited By: No Limitations General Appearance: Alert, No Apparent Distress Ears: Normal External Exam Nose: Normal Inspection Head: Atraumatic, Normocephalic Neck: Normal Inspection Respiratory/Chest: No Respiratory Distress, Lungs Clear, Normal Breath Sounds Cardiovascular: Regular Rate, Rhythm, No Edema, No Murmur GI/Abdominal Exam: Soft, No Organomegaly, No Mass, Tender (Mild lower abdominal tenderness) Course - Vital Signs Last Recorded V/S: Last Vital Signs Temp 97.8 F 11/25/20 11:06 Pulse 87 11/25/20 11:06 Resp 18 11/25/20 11:06 BP 134/78 11/25/20 11:06 Pulse Ox 96 11/25/20 11:06 - Orders/Labs/Meds Orders: Active Orders 24 hr Category Date Time Status Peripheral IV Care [RC] . DIRECTED Care 11/25/20 11:29 Active Sodium Chloride 0.9% [Saline Flush] Med 11/25/20 11:29 Active 10 ml FLUSH ASDIRECTED PRN Peripheral IV Insertion Adult [OM.PC] Stat Oth 11/25/20 11:29 Ordered Medication Orders Sodium Chloride (Sodium Chloride 0.9% 10 Ml Syringe) 10 ml FLUSH ASDIRECTED PRN PRN Reason: Keep Vein Open Last Admin: 11/25/20 11:34 Dose: 10 ml Documented by: NEL Labs: Laboratory Tests 11/25/20 11/25/20 11/25/20 Range/Units 11:05 11:15 11:15 WBC 10.40 H (3.98-10.04) K/mm3 RBC 4.34 (3.98-5.22) M/mm3 Hgb 13.4 (11.2-15.7) gm/dl Hct 40.3 (34.1-44.9) % MCV 92.9 (79.4-94.8) fl MCH 30.9 (25.6-32.2) pg MCHC 33.3 (32.2-35.5) g/dl RDW Std Deviation 42.0 (36.4-46.3) fL Plt Count 323 (182-369) K/mm3 MPV 10.3 (9.4-12.3) fl Neut % (Auto) 67.2 (34.0-71.1) % Lymph % (Auto) 23.2 (19.3-51.7) % [place] % (Auto) 7.2 (4.7-12.5) % Eos % (Auto) 1.4 (0.7-5.8) Baso % (Auto) 0.6 (0.1-1.2) % Neut # (Auto) 6.99 H (1.56-6.13) K/mm3 Lymph # (Auto) 2.41 (1.18-3.74) K/mm3 [place] # (Auto) 0.75 H (0.24-0.36) K/mm3 Eos # (Auto) 0.15 (0.04-0.36) K/mm3 Baso # (Auto) 0.06 (0.01-0.08) K/mm3 Manual Slide Review Abnormal smear Sodium 140 (136-145) mEq/L Potassium 3.8 (3.5-5.1) mEq/L Chloride 105 (98-107) mEq/L Carbon Dioxide 24 (21-32) mEq/L Anion Gap 14.8 (5-15) BUN 10 (7-18) mg/dL Creatinine 0.8 (0.55-1.02) mg/dL Est Cr Clr Drug Dosing 88.93 mL/min Estimated GFR (MDRD) > 60 (>60) mL/min BUN/Creatinine Ratio 12.5 L (14-18) Glucose 132 H (70-99) mg/dL Calcium 8.8 (8.5-10.1) mg/dL Total Bilirubin 0.2 (0.2-1.0) mg/dL AST 64 H (15-37) U/L ALT 59 (14-59) U/L Alkaline Phosphatase 73 (46-116) U/L Total Protein 7.5 (6.4-8.2) g/dl Albumin 3.4 (3.4-5.0) g/dl Globulin 4.1 gm/dL Albumin/Globulin Ratio 0.8 L (1-2) HCG, Qual (NEGATIVE) Urine Color Yellow (Yellow) Urine Appearance Cloudy H (Clear) Urine pH 6.0 (5.0-8.0) Ur Specific [place] 1.025 (1.005-1.030) Urine Protein Trace H (Negative) Urine Glucose (UA) Negative (Negative) Urine Ketones Negative (Negative) Urine Occult Blood 3+ H (Negative) Urine Nitrite Negative (Negative) Urine Bilirubin Negative (Negative) Urine Urobilinogen 0.2 (0.2-1.0) Ur Leukocyte Esterase 2+ H (Negative) Urine RBC 10-20 H (0-5) /hpf Urine WBC 5-10 H (0-5) /hpf Ur Squamous Epith Cells 10-20 H (0-5) /hpf Amorphous Sediment Many H (NOT SEEN) /hpf Urine Bacteria Few (FEW) /hpf Urine Mucus Few (FEW) /hpf 11/25/20 Range/Units 11:15 WBC (3.98-10.04) K/mm3 RBC (3.98-5.22) M/mm3 Hgb (11.2-15.7) gm/dl Hct (34.1-44.9) % MCV (79.4-94.8) fl MCH (25.6-32.2) pg MCHC (32.2-35.5) g/dl RDW Std Deviation (36.4-46.3) fL Plt Count (182-369) K/mm3 MPV (9.4-12.3) fl Neut % (Auto) (34.0-71.1) % Lymph % (Auto) (19.3-51.7) % [place] % (Auto) (4.7-12.5) % Eos % (Auto) (0.7-5.8) Baso % (Auto) (0.1-1.2) % Neut # (Auto) (1.56-6.13) K/mm3 Lymph # (Auto) (1.18-3.74) K/mm3 [place] # (Auto) (0.24-0.36) K/mm3 Eos # (Auto) (0.04-0.36) K/mm3 Baso # (Auto) (0.01-0.08) K/mm3 Manual Slide Review Sodium (136-145) mEq/L Potassium (3.5-5.1) mEq/L Chloride (98-107) mEq/L Carbon Dioxide (21-32) mEq/L Anion Gap (5-15) BUN (7-18) mg/dL Creatinine (0.55-1.02) mg/dL Est Cr Clr Drug Dosing mL/min Estimated GFR (MDRD) (>60) mL/min BUN/Creatinine Ratio (14-18) Glucose (70-99) mg/dL Calcium (8.5-10.1) mg/dL Total Bilirubin (0.2-1.0) mg/dL AST (15-37) U/L ALT (14-59) U/L Alkaline Phosphatase (46-116) U/L Total Protein (6.4-8.2) g/dl Albumin (3.4-5.0) g/dl Globulin gm/dL Albumin/Globulin Ratio (1-2) HCG, Qual Negative (NEGATIVE) Urine Color (Yellow) Urine Appearance (Clear) Urine pH (5.0-8.0) Ur Specific [place] (1.005-1.030) Urine Protein (Negative) Urine Glucose (UA) (Negative) Urine Ketones (Negative) Urine Occult Blood (Negative) Urine Nitrite (Negative) Urine Bilirubin (Negative) Urine Urobilinogen (0.2-1.0) Ur Leukocyte Esterase (Negative) Urine RBC (0-5) /hpf Urine WBC (0-5) /hpf Ur Squamous Epith Cells (0-5) /hpf Amorphous Sediment (NOT SEEN) /hpf Urine Bacteria (FEW) /hpf Urine Mucus (FEW) /hpf Meds: Medications Generic Name Dose Route Start Last Admin Trade Name Freq PRN Reason Stop Dose Admin Sodium Chloride 10 ml 11/25/20 11:29 11/25/20 11:34 Sodium Chloride 0.9% 10 Ml Syringe FLUSH 10 ml ASDIRECTED PRN Administration Keep Vein Open Discontinued Medications Generic Name Dose Route Start Last Admin Trade Name Freq PRN Reason Stop Dose Admin Hydromorphone HCl 0.5 mg 11/25/20 13:00 Hydromorphone 0.5 Mg/0.5 Ml Syringe IVPUSH 11/25/20 13:01 ONETIME ONE Ketorolac Tromethamine 30 mg 11/25/20 13:00 Ketorolac 30 Mg/Ml Sdv IVPUSH 11/25/20 13:01 ONETIME ONE - Re-Assessments/Exams Free Text/Narrative Re-Assessment/Exam: 11/25/20 13:07 I ordered an IV saline lock, labs and a UA. 11/25/20 13:22 Her CBC was 10.4. Her glucose is elevated at 132. AST is elevated at 64. Her HCG is negative. Her UA shows no UTI. I do not think this is the kidney stone. It was in the pole of the kidney. I feel this is low back pain. I will give her something for that and have her follow up with her doctor. Departure - Departure Time of Disposition: 13:25 Disposition: Home, Self-Care 01 Condition: Good Clinical Impression: Low back pain Qualifiers: Chronicity: acute Back pain laterality: bilateral Sciatica presence: without sciatica Qualified Code(s): M54.5 - Low back pain - Discharge Information *PRESCRIPTION DRUG MONITORING PROGRAM REVIEWED*: Not Applicable *COPY OF PRESCRIPTION DRUG MONITORING REPORT IN PATIENT AROLDO: Not Applicable Prescriptions: Cyclobenzaprine [Flexeril] 10 mg PO TID PRN #20 tab PRN Reason: Pain Hydrocodone/Acetaminophen [Hydrocodone-Acetamin 5-325 mg] 1 - 2 each PO Q6H PRN #15 tablet PRN Reason: Pain Referrals: Amanda Gonsales [employer] [Primary Care Provider] - 1 Week Forms: ED Department Discharge Additional Instructions: Drink plenty of fluids. Take tylenol or motrin for pain. If that does not help, try the hydrocodone and flexeril. Follow up with your provider within a week. Please return if you are worse. Sepsis Event Note (ED) - Evaluation Sepsis Screening Result: No Definite Risk - Focused Exam Vital Signs: Vital Signs Temp Pulse Resp BP Pulse Ox 11/25/20 11:06 97.8 F 87 18 134/78 96 - My Orders Last 24 Hours: My Active Orders 11/25/20 11:29 Peripheral IV Care [RC] . DIRECTED Sodium Chloride 0.9% [Saline Flush] 10 ml FLUSH ASDIRECTED PRN Peripheral IV Insertion Adult [OM.PC] Stat - Assessment/Plan Last 24 Hours: My Active Orders 11/25/20 11:29 Peripheral IV Care [RC] . DIRECTED Sodium Chloride 0.9% [Saline Flush] 10 ml FLUSH ASDIRECTED PRN Peripheral IV Insertion Adult [OM.PC] Stat
[2020-11-25] MEDS ORDERED: HYDROmorphone 0.5 MG/0.5 ML Syringe IVPUSH ONE (13:00)
[2020-11-25] MEDS ORDERED: Ketorolac 30 MG/ML SDV IVPUSH ONE (13:00)
== END 2020-11-25 14:15 | disposition home or self-care (01) ==
LOC: JD.ED 10:58
DX: M54.5 Low back pain (principal); K21.9 Gastro-esophageal reflux disease without esophagitis; E66.9 Obesity, unspecified; Z87.891 Personal history of nicotine dependence; Z91.09 Other allergy status, other than to drugs and biological substances; Z68.41 Body mass index [BMI] 40.0-44.9, adult; Z79.899 Other long term (current) drug therapy
CPT/HCPCS: 36415; 80053; 81001; 84703; 85025; 96374; 96375; 99283; J1170; J1885

== ENCOUNTER 2021-03-24 08:35 | Emergency (ER) | payer OTHER ==
--- NOTE | 2021-03-24 09:28 | EDM.PDOC ---
ED HPI GENERAL MEDICAL PROBLEM - General Chief Complaint: General Stated Complaint: SENT BY CLAUDINE LOERA INFECTION Time Seen by Provider: 03/24/21 09:28 Source of Information: Reports: Patient History Limitations: Reports: No Limitations - History of Present Illness INITIAL COMMENTS - FREE TEXT/NARRATIVE: 25-year-old female presents to the ED from the [facility]. She has been doctoring there for the last couple of weeks. She reports that she has had a persistent primarily frontal lobe headache bilaterally for the last 9 days. Associate with intermittent nausea and vomiting. Poor oral intake. No definite fever or chills. She reports that she has had an elevated white count reported and an elevated CRP. She states she does not have any neck pain. No visual acuity changes acutely although she appreciates blurred vision at night while driving. She does wear eyeglasses at all times. She has been treated with 2 courses of steroids recently for suspected autoimmune disease with the last steroid intake on Saturday, March 22. This is likely the cause of the elevated white blood cell count. Due to trace of leukocyte esterase in the urine with 6-10 white blood cells and positive nitrates she was started on Omnicef tablet 300 mg twice daily yesterday for which she has taken 1 tablet. He has not appreciated any fever or chills. She is unvaccinated against Covid. She did have a COVID-19 test yesterday at the clinic which was negative. Chest x-ray was also normal. She denies any dysuria urgency or frequency. She has a history of migraine headaches and was on Botox injections which helped quite well. Last Botox injections were 2 years ago. Onset: Gradual Onset Date: 03/12/21 (She believes she became ill around) Duration: Day(s): ( Saturday, March 12.), Getting Worse Location: Reports: Head (Persistent throbbing pulsating headache primarily bifrontal associate with intermittent nausea and vomiting), Other (Decreased appetite.) Quality: Reports: Ache, Throbbing (Throbbing constant headache) Severity: Moderate (bifrontal headache 8 out of 10) Improves with: Reports: Rest Worsens with: Reports: Other (In a dark room.) Context: Denies: Activity ( Worsens with walking and standing but not dramatically worse with standing), Exercise, Sick Contact, Trauma Associated Symptoms: Reports: Loss of Appetite, Malaise, Nausea/Vomiting (Associated with persistent headache), Weakness. 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, Home Treatments (Motrin), Other (see below) (Started on Omnicef 300 mg twice daily yesterday for suspected urinary tract infection) Headache Pain Score (Numeric/FACES): 7 - Related Data Allergies Allergy/AdvReac Type Severity Reaction Status Date / Time dog dander Allergy Sneezing Verified 03/24/21 08:54 horse dander Allergy Sneezing Verified 03/24/21 08:54 Home Meds: Home Meds Norelgestromin/Ethin.Estradiol [Xulane 150-35 Mcg/Day Patch] 1 patch TOP Q7D 05/24/20 [History] Allopurinol [Zyloprim] 300 mg PO DAILY 11/18/20 [History] Cefdinir 300 mg PO BID 03/24/21 [History] Cefdinir [Omnicef] 300 mg PO BID #6 cap 03/24/21 [Rx] Ondansetron [Zofran] 4 mg BUCCAL Q6H PRN #5 tab 03/24/21 [Rx] oxyCODONE HCl/Acetaminophen [Percocet 5-325 mg Tablet] 1 - 2 each PO Q4H PRN #14 tablet 03/24/21 [Rx] Past Medical History HEENT History: Reports: Impaired Vision Other HEENT History: glasses Cardiovascular History: Reports: None Respiratory History: Reports: None Gastrointestinal History: Reports: Gastritis, GERD, Other (See Below) Other Gastrointestinal History: duodenitis, esophagitis, elevated LFTs, hepatic steatosis Genitourinary History: Reports: Renal Calculus, UTI, Recurrent 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: , 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 Musculoskeletal History: Reports: Fracture, Other (See Below) Other Musculoskeletal History: Carpal tunnel Neurological History: Reports: Headaches, Chronic, Migraines, Other (See Below) Other Neuro History: dizziness Psychiatric History: Reports: None Endocrine/Metabolic History: Reports: Obesity/BMI 30+ Hematologic History: Reports: None Immunologic History: Reports: None Oncologic (Cancer) History: Reports: None Dermatologic History: Reports: None - Infectious Disease History Infectious Disease History: Reports: Chicken Pox Other Infectious Disease History: reports she had + antibody screen for COVID in July 2020 - Past Surgical History HEENT Surgical History: Reports: Myringotomy w Tube(s), Oral Surgery Cardiovascular Surgical History: Reports: None Respiratory Surgical History: Reports: None GI Surgical History: Reports: Cholecystectomy, Colonoscopy, EGD Female Surgical History: Reports: Breast Biopsy, D&C, Other (See Below) Other Female Surgeries/Procedures: cyst removal of right breast Oncologic Surgical History: Reports: Biopsy of Breast - History Comment History Comment: vits Social & Family History - Family History Family Medical History: No Pertinent Family History - Tobacco Use Tobacco Use Status *Q: Never Tobacco User - Caffeine Use Caffeine Use: Reports: Coffee - Recreational Drug Use Recreational Drug Use: No - Living Situation & Occupation Living situation: Reports: Occupation: Employed ED ROS GENERAL - Review of Systems Review Of Systems: See Below Constitutional: Reports: Fever (Wraps low-grade initially.), Malaise, Weakness, Fatigue, Decreased Appetite, Weight Loss. Denies: Chills HEENT: Reports: Glasses (Is glasses at all times.) Respiratory: Reports: No Symptoms. Denies: Shortness of Breath, Wheezing, Pleuritic Chest Pain, Cough, Sputum Cardiovascular: Denies: Chest Pain, Blood Pressure Problem, Claudication, Dyspnea on Exertion, Edema, Lightheadedness, Orthopnea, Palpitations Endocrine: Reports: Fatigue GI/Abdominal: Reports: No Symptoms : Denies: Dysuria, Frequency, Urgency Musculoskeletal: Reports: Neck Pain (No worse than normal.), Back Pain (Low back pain) Skin: Reports: No Symptoms Neurological: Reports: Headache (Persistent headache for the last 9 days), Weakness. Denies: Confusion, Dizziness, Numbness, Paresthesia, Pre-Existing Deficit, Seizure, Syncope, Tingling, Tremors, Trouble Speaking, Difficulty Walking, Change in Speech Psychiatric: Reports: No Symptoms Hematologic/Lymphatic: Reports: No Symptoms Immunologic: Reports: No Symptoms ED EXAM, GENERAL - Physical Exam Exam: See Below Exam Limited By: No Limitations General Appearance: Alert, WD/WN, Mild Distress, Other (Examination carried out in a darkened room due to severe headache. Temperature is 36.4 and she does not feel warm to palpation. Heart rate 88 and sinus respiratory is 14 with O2 sats of 98% room air. BP mildly elevated 144/103.) Eye Exam: Bilateral Eye: Normal Inspection (No blepharal pallor or scleral icterus), PERRL Throat/Mouth: Normal Inspection, Normal Lips, Normal Oropharynx, Other Head: Atraumatic, Normocephalic (Tongue is mildly dry and coated), Other (No signs of head or facial trauma). No: Facial Swelling, Facial Tenderness Neck: Normal Inspection, Supple, Non-Tender, Full Range of Motion. No: Lymphadenopathy (L), Lymphadenopathy (R) Respiratory/Chest: No Respiratory Distress, Lungs Clear, Normal Breath Sounds, No Accessory Muscle Use Cardiovascular: Normal Peripheral Pulses, Regular Rate, Rhythm, No Edema, No Gallop, No Murmur, No Rub Peripheral Pulses: 3+: Carotid (L), Carotid (R), Posterior Tibial (L), Posterior Tibial (R), Dorsalis Pedis (L), Dorsalis Pedis (R) GI/Abdominal: Normal Bowel Sounds, Soft, Non-Tender, No Organomegaly, No Distention, No Mass, Pelvis Stable, Other (She has had previous laparoscopic cholecystectomy) Back Exam: Normal Inspection, Full Range of Motion. No: CVA Tenderness (L), CVA Tenderness (R) Extremities: Normal Inspection, Normal Range of Motion, Non-Tender, No Pedal Edema Neurological: Alert, Oriented, CN II-XII Intact, Normal Cognition, Normal Reflexes, No Motor/Sensory Deficits Psychiatric: Normal Affect, Normal Mood Skin Exam: Warm, Dry, Intact, Normal Color, No Rash Lymphatic: No Adenopathy Course - Vital Signs Last Recorded V/S: Last Vital Signs Temp 36.4 C 03/24/21 08:54 Pulse 89 03/24/21 11:41 Resp 16 03/24/21 11:41 BP 125/84 03/24/21 11:41 Pulse Ox 98 03/24/21 11:41 - Orders/Labs/Meds Orders: Active Orders 24 hr Category Date Time Status Head wo Cont [CT] Stat Exams 03/24/21 09:47 Taken CULTURE URINE [MREF] Stat Lab 03/24/21 10:05 Received Dextrose 5%-0.9% NaCl [Dextrose 5%-Normal Saline] 1,000 Med 03/24/21 09:45 Active ml IV ASDIRECTED Dextrose 5%-0.9% NaCl [Dextrose 5%-Normal Saline] 1,000 Med 03/24/21 11:30 Active ml IV ASDIRECTED Ketorolac [Toradol] Med 03/24/21 09:45 Active 30 mg IVPUSH ONETIME Medication Orders Dextrose/Sodium Chloride (Dextrose 5%-Normal Saline) 1,000 mls @ 999 mls/hr IV ASDIRECTED MICHAEL Last Admin: 03/24/21 10:20 Dose: 999 mls/hr Documented by: YANCI Dextrose/Sodium Chloride (Dextrose 5%-Normal Saline) 1,000 mls @ 500 mls/hr IV ASDIRECTED MICHAEL Last Admin: 03/24/21 11:36 Dose: 500 mls/hr Documented by: JOSHUA Ketorolac Tromethamine (Ketorolac 30 Mg/Ml Sdv) 30 mg IVPUSH ONETIME MICHAEL Last Admin: 03/24/21 10:44 Dose: 30 mg Documented by: YANCI Labs: Laboratory Tests 03/24/21 03/24/21 03/24/21 Range/Units 10:03 10:03 10:03 WBC 14.58 H (3.98-10.04) K/mm3 RBC 4.70 (3.98-5.22) M/mm3 Hgb 14.0 (11.2-15.7) gm/dl Hct 43.2 (34.1-44.9) % MCV 91.9 (79.4-94.8) fl MCH 29.8 (25.6-32.2) pg MCHC 32.4 (32.2-35.5) g/dl RDW Std Deviation 41.5 (36.4-46.3) fL Plt Count 260 (182-369) K/mm3 MPV 10.0 (9.4-12.3) fl Neutrophils % (Manual) 79 H (40-60) % Band Neutrophils % 0 (0-10) % Lymphocytes % (Manual) 15 L (20-40) % Atypical Lymphs % 0 % Monocytes % (Manual) 6 (2-10) % Eosinophils % (Manual) 0 L (0.7-5.8) % Basophils % (Manual) 0 L (0.1-1.2) Platelet Estimate Adequate RBC Morph Comment Normal Sodium 137 (136-145) mEq/L Potassium 4.0 (3.5-5.1) mEq/L Chloride 102 (98-107) mEq/L Carbon Dioxide 26 (21-32) mEq/L Anion Gap 13.0 (5-15) BUN 16 (7-18) mg/dL Creatinine 0.7 (0.55-1.02) mg/dL Est Cr Clr Drug Dosing 106.09 mL/min Estimated GFR (MDRD) > 60 (>60) mL/min BUN/Creatinine Ratio 22.9 H (14-18) Glucose 104 H (70-99) mg/dL Calcium 8.5 (8.5-10.1) mg/dL Magnesium 1.9 (1.8-2.4) mg/dL Total Bilirubin 0.6 (0.2-1.0) mg/dL AST 20 (15-37) U/L ALT 61 H (14-59) U/L Alkaline Phosphatase 72 (46-116) U/L C-Reactive Protein 1.8 H* (<1.0) mg/dL Total Protein 6.7 (6.4-8.2) g/dl Albumin 3.3 L (3.4-5.0) g/dl Globulin 3.4 gm/dL Albumin/Globulin Ratio 1.0 (1-2) TSH 3rd Generation 1.584 (0.358-3.74) uIU/mL Urine Color (Yellow) Urine Appearance (Clear) Urine pH (5.0-8.0) Ur Specific [place] (1.005-1.030) Urine Protein (Negative) Urine Glucose (UA) (Negative) Urine Ketones (Negative) Urine Occult Blood (Negative) Urine Nitrite (Negative) Urine Bilirubin (Negative) Urine Urobilinogen (0.2-1.0) Ur Leukocyte Esterase (Negative) U Hyaline Cast (Auto) (0-5) /lpf Urine RBC (0-5) /hpf Urine WBC (0-5) /hpf Ur Squamous Epith Cells (0-5) /hpf Urine Bacteria (FEW) /hpf Urine Mucus (FEW) /hpf Ketones 0.23 (0.0-0.3) mM 11/05/21 Range/Units 10:05 WBC (3.98-10.04) K/mm3 RBC (3.98-5.22) M/mm3 Hgb (11.2-15.7) gm/dl Hct (34.1-44.9) % MCV (79.4-94.8) fl MCH (25.6-32.2) pg MCHC (32.2-35.5) g/dl RDW Std Deviation (36.4-46.3) fL Plt Count (182-369) K/mm3 MPV (9.4-12.3) fl Neutrophils % (Manual) (40-60) % Band Neutrophils % (0-10) % Lymphocytes % (Manual) (20-40) % Atypical Lymphs % % Monocytes % (Manual) (2-10) % Eosinophils % (Manual) (0.7-5.8) % Basophils % (Manual) (0.1-1.2) Platelet Estimate RBC Morph Comment Sodium (136-145) mEq/L Potassium (3.5-5.1) mEq/L Chloride (98-107) mEq/L Carbon Dioxide (21-32) mEq/L Anion Gap (5-15) BUN (7-18) mg/dL Creatinine (0.55-1.02) mg/dL Est Cr Clr Drug Dosing mL/min Estimated GFR (MDRD) (>60) mL/min BUN/Creatinine Ratio (14-18) Glucose (70-99) mg/dL Calcium (8.5-10.1) mg/dL Magnesium (1.8-2.4) mg/dL Total Bilirubin (0.2-1.0) mg/dL AST (15-37) U/L ALT (14-59) U/L Alkaline Phosphatase (46-116) U/L C-Reactive Protein (<1.0) mg/dL Total Protein (6.4-8.2) g/dl Albumin (3.4-5.0) g/dl Globulin gm/dL Albumin/Globulin Ratio (1-2) TSH 3rd Generation (0.358-3.74) uIU/mL Urine Color Light yellow (Yellow) Urine Appearance Clear (Clear) Urine pH 6.0 (5.0-8.0) Ur Specific [place] 1.025 (1.005-1.030) Urine Protein Negative (Negative) Urine Glucose (UA) Negative (Negative) Urine Ketones Negative (Negative) Urine Occult Blood Trace-intact H (Negative) Urine Nitrite Negative (Negative) Urine Bilirubin Negative (Negative) Urine Urobilinogen 0.2 (0.2-1.0) Ur Leukocyte Esterase 2+ H (Negative) U Hyaline Cast (Auto) 0-5 (0-5) /lpf Urine RBC 5-10 H (0-5) /hpf Urine WBC 10-20 H (0-5) /hpf Ur Squamous Epith Cells 5-10 H (0-5) /hpf Urine Bacteria Moderate H (FEW) /hpf Urine Mucus Moderate H (FEW) /hpf Ketones (0.0-0.3) mM Meds: Medications Generic Name Dose Route Start Last Admin Trade Name Freq PRN Reason Stop Dose Admin Dextrose/Sodium Chloride 1,000 mls @ 999 mls/hr 03/24/21 09:45 03/24/21 10:20 Dextrose 5%-Normal Saline IV 999 mls/hr ASDIRECTED MICHAEL Administration Dextrose/Sodium Chloride 1,000 mls @ 500 mls/hr 03/24/21 11:30 03/24/21 11:36 Dextrose 5%-Normal Saline IV 500 mls/hr ASDIRECTED MICHAEL Administration Ketorolac Tromethamine 30 mg 03/24/21 09:45 03/24/21 10:44 Ketorolac 30 Mg/Ml Sdv IVPUSH 30 mg ONETIME MICHAEL Administration Discontinued Medications Generic Name Dose Route Start Last Admin Trade Name Yuniel PRN Reason Stop Dose Admin Hydromorphone HCl 0.5 mg 03/24/21 09:44 03/24/21 10:17 Hydromorphone 0.5 Mg/0.5 Ml Syringe IVPUSH 03/24/21 09:45 0.5 mg ONETIME ONE Administration Hydromorphone HCl 0.5 mg 03/24/21 11:22 03/24/21 11:36 Hydromorphone 0.5 Mg/0.5 Ml Syringe IVPUSH 03/24/21 11:23 0.5 mg ONETIME ONE Administration Ceftriaxone Sodium 2 gm/ 100 mls @ 200 mls/hr 03/24/21 09:46 03/24/21 10:21 Sodium Chloride IV 03/24/21 10:15 200 mls/hr ONETIME ONE Administration Metoclopramide HCl 7.5 mg 03/24/21 09:44 03/24/21 10:16 Metoclopramide 10 Mg/2 Ml Sdv IVPUSH 03/24/21 09:45 7.5 mg ONETIME ONE Administration - Radiology Interpretation Free Text/Narrative:: 25-year-old female attends the ED at the request of her primary care provider at [facility]. She has had a persistent bifrontal headache for the last 9 days. Associate with intermittent nausea and vomiting. Associate with photophobia. History of migraines but had done pretty well after Botox treatments with the last treatment being given 2 years ago. Patient has been treated with 2 courses of Medrol Dosepak with the last dose of steroids taken on March 22. Labs done yesterday revealed a white count of 21.3. Urine at urinalysis showed 1+ leukocyte esterase nitrate +6-12 white blood cells per high-power field and many bacteria. She was thus started on Omnicef 300 mg twice daily of which she has taken 1 tablet. She has no meningismus. No sore throat Covid screen is negative at the clinic yesterday. Chest x-ray done in the clinic yesterday was negative as well. CRP has been as high as 18.6. This strongly suggest an underlying bacterial infection. It appears this most likely is in the urinary tract. There are plenty of epithelial cells in the urine as well suggesting pyelonephritis but she has no CVA tenderness. She has had no severe chills and she has no fever at this point time. Plan IV fluids D5 normal saline open. She will be given Rocephin 2 g IV after urine has been collected and blood cultures x2. Serum ketones were ordered. CT head will be done. - Re-Assessments/Exams Free Text/Narrative Re-Assessment/Exam: 03/24/21 11:03 CT of the head has been completed without IV contrast. The brain appears normal with no hemorrhage and no unremarkable white matter. No mass- effect. No hydrocephalus or evidence of increased intracranial pressure. Visualized sinuses are unremarkable with no air-fluid levels. Visualized mastoid air cells are well aerated. No acute abnormality no acute fractures identified soft tissues are unremarkable. 03/24/21 11:17 I did speak with the patient and indicate that CT of her head is within normal limits. 03/24/21 11:18 Abs reveal a mild mildly elevated white count at 14.58 remembering that she just finished a 5-day course of steroids 2 days ago. The differential is pending. Hemoglobin is 14.0 with hematocrit of 43.2. Sodium 137 with potassium of 4.0. Chloride 102 with a bicarb of 26. Anion gap is 13.0. BUN is 16 with a creatinine of 0.7 and GFR greater than 60. Glucose is 104. Calcium 8.5. Magnesium 1.9. Liver function shows a mildly elevated ALT at 61. C-reactive protein is down to 1.8 total protein 6.7 with an albumin fraction of 3.3 TSH is 1.58. Urinalysis collected today shows trace of occult blood 2+ leukocyte esterase 5-10 RBCs 10-20 white blood cells and moderate bacteria. Serum ketones are 0.23. She reports headache is still 7-8 out of 10. We will repeat Dilaudid 0.5 mg IV for pain relief. Going to give her another 500 mils of D5 normal saline as well. 03/24/21 11:21 Departure - Departure Time of Disposition: 12:34 Disposition: Home, Self-Care 01 Condition: Fair Clinical Impression: Pyelonephritis, Migraine variant with headache - Discharge Information *PRESCRIPTION DRUG MONITORING PROGRAM REVIEWED*: Not Applicable *COPY OF PRESCRIPTION DRUG MONITORING REPORT IN PATIENT AROLDO: Not Applicable Prescriptions: Cefdinir [Omnicef] 300 mg PO BID #6 cap oxyCODONE HCl/Acetaminophen [Percocet 5-325 mg Tablet] 1 - 2 each PO Q4H PRN #14 tablet PRN Reason: pain relief. 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 Examination of labs obtained from [facility] and labs done here today strongly reveal a urinary tract infection with epithelial cells indicating this is coming from your kidneys. We call this pyelonephritis. You were therefore treated with initial dose of antibiotic Rocephin 2 g intravenously. You were started on Omnicef tablets 300 mg strength yesterday which you have had 1 tablet. I would suggest starting again tomorrow morning with Omnicef twice daily until completion of the prescription. I have written a prescription for 6 more tablets to ensure that the infection is completely cleared as we usually treat pyelonephritis for 10 days of antibiotics. Continue Motrin 600 mg every 6 hours as needed for headache or back pain or fever relief. Percocet tabs 5/325 mg strength 1 or 2 every 4-6 hours as needed for headache relief with Zofran 4 mg sublingual every 6 hours to relieve nausea or vomiting. Expect marked improvement over the next 48 to 72 hours. Plenty of fluids such as Gatorade or Powerade to maintain hydration. Diet as tolerated. Suggest follow-up with your personal care provider on Saturday or Saturday next week. Sepsis Event Note (ED) - Evaluation Sepsis Screening Result: No Definite Risk - Focused Exam Vital Signs: Vital Signs Temp Pulse Resp BP Pulse Ox 03/24/21 11:41 89 16 125/84 98 03/24/21 08:54 36.4 C 88 14 144/103 H 98 - My Orders Last 24 Hours: My Active Orders 03/24/21 09:45 Dextrose 5%-0.9% NaCl [Dextrose 5%-Normal Saline] 1,000 ml IV ASDIRECTED Ketorolac [Toradol] 30 mg IVPUSH ONETIME 03/24/21 09:47 Head wo Cont [CT] Stat 03/24/21 10:05 CULTURE URINE [MREF] Stat 03/24/21 11:30 Dextrose 5%-0.9% NaCl [Dextrose 5%-Normal Saline] 1,000 ml IV ASDIRECTED - Assessment/Plan Last 24 Hours: My Active Orders 03/24/21 09:45 Dextrose 5%-0.9% NaCl [Dextrose 5%-Normal Saline] 1,000 ml IV ASDIRECTED Ketorolac [Toradol] 30 mg IVPUSH ONETIME 03/24/21 09:47 Head wo Cont [CT] Stat 03/24/21 10:05 CULTURE URINE [MREF] Stat 03/24/21 11:30 Dextrose 5%-0.9% NaCl [Dextrose 5%-Normal Saline] 1,000 ml IV ASDIRECTED
[2021-03-24] MEDS ORDERED: Metoclopramide 10 MG/2 ML SDV IVPUSH ONE (09:44)
[2021-03-24] MEDS ORDERED: HYDROmorphone 0.5 MG/0.5 ML Syringe IVPUSH ONE ×2 (09:44→11:22)
[2021-03-24] MEDS ORDERED: Ketorolac 30 MG/ML SDV IVPUSH SCH (09:45)
[2021-03-24] MEDS ORDERED: Dextrose 5%-0.9% NaCl 1,000 ML IV SCH ×2 (09:45→11:30)
[2021-03-24] MEDS ORDERED: cefTRIAXone 2 GM in Sodium Chloride 0.9% 100 ML IV ONE (09:46)
[2021-03-24 11:41] VITALS: BP 125/84; PULSE 89
--- NOTE | 2021-03-25 06:58 | CT ---
Head CT Technique: Multiple axial sections through the brain were obtained. Intravenous contrast was not utilized. Reconstructed coronal and sagittal images were obtained. Comparison: No prior intracranial imaging is available. Findings: Ventricles along with basal cisterns and sulci over the convexities are within normal limits for the patient's age. No abnormal parenchymal densities are seen. No evidence of intracranial hemorrhage is seen. No midline shift or mass-effect is seen. Bone window settings were reviewed. No acute calvarial abnormality is seen. Visualized mastoid sinuses and paranasal sinuses show nothing acute. Impression: 1. Nothing acute is seen on noncontrast head CT study. Diagnostic code #1 I agree with preliminary report from [facility], finalized on 03/24/21, 11:57 AM CDT, code 1
== END 2021-03-24 13:20 | disposition home or self-care (01) ==
LOC: JD.ED 08:35
DX: G43.909 Migraine, unspecified, not intractable, without status migrainosus (principal); N12 Tubulo-interstitial nephritis, not specified as acute or chronic; E66.9 Obesity, unspecified; Z68.41 Body mass index [BMI] 40.0-44.9, adult; Z90.49 Acquired absence of other specified parts of digestive tract; Z91.048 Other nonmedicinal substance allergy status; Z79.899 Other long term (current) drug therapy
CPT/HCPCS: 36415; 70450; 80053; 81001; 82009; 83735; 84443; 85007; 85027; 86140; 87086; 96365; 96375; 96376; 99284; J0696; J1170; J1885; J2765; J7042; 99285

== ENCOUNTER 2021-06-06 13:51 | Emergency (ER) | payer OTHER ==
[2021-06-06 14:21] VITALS: BP 178/115; PULSE 95
[2021-06-06] MEDS ORDERED: Ondansetron 4 MG/2 ML SDV IVPUSH ONE (14:35)
[2021-06-06] MEDS ORDERED: Sodium Chloride 0.9% 1,000 ML IV STA (14:35)
[2021-06-06] MEDS ORDERED: Ketorolac 30 MG/ML SDV IVPUSH ONE (14:35)
[2021-06-06] MEDS ORDERED: diphenhydrAMINE 50 MG/ML SDV IVPUSH ONE (14:36)
[2021-06-06] MEDS ORDERED: HYDROmorphone 0.5 MG/0.5 ML Syringe IVPUSH ONE (16:14)
== END 2021-06-06 18:21 | disposition home or self-care (01) ==
LOC: JD.ED 13:51
DX: G43.909 Migraine, unspecified, not intractable, without status migrainosus (principal); I10 Essential (primary) hypertension; E66.9 Obesity, unspecified; Z68.41 Body mass index [BMI] 40.0-44.9, adult; Z91.048 Other nonmedicinal substance allergy status; Z79.899 Other long term (current) drug therapy
CPT/HCPCS: 36415; 80053; 85025; 85652; 86140; 96374; 96375; 99283; J1170; J1200; J1885; J2405; J7030

== ENCOUNTER 2021-12-08 10:43 | Emergency (ER) | payer OTHER ==
[2021-12-08] MEDS ORDERED: Ondansetron 4 MG/2 ML SDV IVPUSH ONE (11:15)
[2021-12-08] MEDS ORDERED: Lactated Ringers 1,000 ML IV ONE (11:15)
[2021-12-08 18:30] VITALS: BP 101/57; PULSE 82
== END 2021-12-08 13:45 | disposition home or self-care (01) ==
LOC: JD.ED 10:43
DX: R10.84 Generalized abdominal pain (principal); R10.816 Epigastric abdominal tenderness; I10 Essential (primary) hypertension; K21.9 Gastro-esophageal reflux disease without esophagitis; E66.9 Obesity, unspecified; Z91.048 Other nonmedicinal substance allergy status; Z79.899 Other long term (current) drug therapy; Z68.41 Body mass index [BMI] 40.0-44.9, adult
CPT/HCPCS: 36415; 80053; 81003; 81025; 82977; 83690; 85025; 96374; 99284; J2405; J7120

== ENCOUNTER 2022-06-14 09:25 | Emergency (ER) | payer OTHER ==
[2022-06-14] MEDS ORDERED: Ketorolac 30 MG/ML SDV IVPUSH STA (11:30)
[2022-06-14 12:20] VITALS: BP 123/78; PULSE 102
== END 2022-06-14 12:15 | disposition home or self-care (01) ==
LOC: JD.ED 09:25
DX: R56.9 Unspecified convulsions (principal); I10 Essential (primary) hypertension; E66.9 Obesity, unspecified; Z68.37 Body mass index [BMI] 37.0-37.9, adult; Z91.048 Other nonmedicinal substance allergy status; Z79.899 Other long term (current) drug therapy
CPT/HCPCS: 36415; 70450; 80053; 80306; 80307; 81025; 82550; 83735; 84100; 85007; 85027; 93005; 96374; 99285; J1885; 93010; 99284

== ENCOUNTER 2022-07-12 10:14 | Emergency (ER) | payer OTHER ==
[2022-07-12 13:32] LABS: CORONAVIRUS COVID-19 NAA NEGATIVE (NEGATIVE)
[2022-07-12 14:32] VITALS: BP 121/74; PULSE 68
== END 2022-07-12 14:35 | disposition home or self-care (01) ==
LOC: JD.ED 10:14
DX: J11.1 Influenza due to unidentified influenza virus with other respiratory manifestations (principal); I10 Essential (primary) hypertension; E66.9 Obesity, unspecified; Z68.36 Body mass index [BMI] 36.0-36.9, adult; Z91.048 Other nonmedicinal substance allergy status; Z79.899 Other long term (current) drug therapy; Z20.822 Contact with and (suspected) exposure to COVID-19
CPT/HCPCS: 0241U; 36415; 80053; 81025; 85025; 86140; 99284; 99283

== ENCOUNTER 2023-01-11 02:13 | Emergency (ER) | payer OTHER ==
[2023-01-11 02:58] VITALS: BP 143/90; PULSE 72
== END 2023-01-11 02:58 | disposition home or self-care (01) ==
LOC: JD.ED 02:13
DX: I10 Essential (primary) hypertension (principal); E66.9 Obesity, unspecified; Z68.37 Body mass index [BMI] 37.0-37.9, adult; Z86.16 Personal history of COVID-19; Z88.8 Allergy status to other drugs, medicaments and biological substances; Z91.048 Other nonmedicinal substance allergy status; Z79.899 Other long term (current) drug therapy
CPT/HCPCS: 99282; 99283

== ENCOUNTER 2023-08-12 10:29 | Emergency (ER) | payer OTHER ==
[2023-08-12] MEDS: diphenhydrAMINE 50 MG/ML SDV IVPUSH ONE (11:03)
[2023-08-12] MEDS: Sodium Chloride 0.9% 1,000 ML IV STA (11:04)
[2023-08-12] MEDS: Ketorolac 30 MG/ML SDV IVPUSH ONE (11:04)
[2023-08-12] MEDS: Metoclopramide 10 MG/2 ML SDV IVPUSH ONE (11:04)
[2023-08-12] MEDS: Sodium Chloride 0.9% 10 ML Syringe FLUSH PRN (11:04)
[2023-08-12 11:08] LABS: BASOPHILS ABSOLUTE AUTO 0.1 K/mm3 (0.0-0.2); BASOPHILS PERCENT AUTO 0.5 % (0.0-1.0); EOSINOPHILS ABSOLUTE AUTO 0.4 K/mm3 (0.0-0.4); EOSINOPHILS PERCENT AUTO 3.4 % (0.0-6.0); HEMATOCRIT 41.7 % (37.0-47.0); HEMOGLOBIN 13.9 gm/dl (12.0-16.0); IMMATURE GRAN ABSOLUTE AUTO 0.04 K/mm3 (0.00-0.05); IMMATURE GRAN PERCENT AUTO 0.4 % (0.0-0.4); LYMPHOCYTES PERCENT AUTO 9.3 % (24.0-44.0); MEAN CORPUSCULAR HEMOGLOBIN 31.5 pg (28.0-32.0); MEAN CORPUSCULAR HGB CONC 33.3 g/dl (32.0-36.0); MEAN CORPUSCULAR VOLUME 94.6 fl (83.0-99.0); MEAN PLATELET VOLUME 10.1 fl (9.4-12.3); MONOCYTES ABSOLUTE AUTO 0.6 K/mm3 (0.0-0.8); MONOCYTES PERCENT AUTO 5.5 % (0.0-8.0); NEUTROPHILS ABSOLUTE AUTO 8.7 K/mm3 (1.8-7.7); NEUTROPHILS PERCENT AUTO 80.9 % (41.0-71.0); PLATELET COUNT,PLT 248 K/mm3 (150-400); RED BLOOD CELL COUNT 4.41 M/mm3 (4.10-5.30); WHITE BLOOD CELL COUNT,WBC 10.79 K/mm3 (3.9-11.3)
[2023-08-12 11:18] LABS: A/G RATIO 0.9 (1-2); ALBUMIN 3.4 g/dl (3.4-5.0); ANION GAP 15.9 (5-15); BILIRUBIN TOTAL 0.8 mg/dL (0.2-1.0); BUN/CREATININE RATIO 13.8 (14-18); CALCIUM 8.9 mg/dL (8.5-10.1); CREATININE 0.8 mg/dL (0.55-1.02); EST CRCL DRUG DOSING (CG) 90.41 mL/min; POTASSIUM,K 3.9 mEq/L (3.5-5.1); PROTEIN TOTAL,TP 7.4 g/dl (6.4-8.2)
[2023-08-12] MEDS: HYDROmorphone 0.5 MG/0.5 ML Syringe IVPUSH ONE (13:39)
[2023-08-12 16:24] VITALS: BP 150/91; PULSE 89
== END 2023-08-12 13:38 | disposition home or self-care (01) ==
LOC: JD.ED 10:29
DX: A08.4 Viral intestinal infection, unspecified (principal); G43.909 Migraine, unspecified, not intractable, without status migrainosus; I10 Essential (primary) hypertension; E66.9 Obesity, unspecified; Z88.8 Allergy status to other drugs, medicaments and biological substances; Z91.048 Other nonmedicinal substance allergy status; Z79.899 Other long term (current) drug therapy; Z86.19 Personal history of other infectious and parasitic diseases; Z86.16 Personal history of COVID-19; Z90.49 Acquired absence of other specified parts of digestive tract; Z68.39 Body mass index [BMI] 39.0-39.9, adult
CPT/HCPCS: 36415; 80053; 83690; 84703; 85025; 96361; 96374; 96375; 99284; J1170; J1200; J1885; J2765; J3490; J7030

== ENCOUNTER 2024-01-14 16:08 | Emergency (ER) | payer OTHER ==
[2024-01-14 16:36] LABS: BASOPHILS ABSOLUTE AUTO 0.1 K/mm3 (0.0-0.2); BASOPHILS PERCENT AUTO 0.5 % (0.0-1.0); EOSINOPHILS ABSOLUTE AUTO 0.1 K/mm3 (0.0-0.4); EOSINOPHILS PERCENT AUTO 0.5 % (0.0-6.0); HEMATOCRIT 42.6 % (37.0-47.0); HEMOGLOBIN 13.8 gm/dl (12.0-16.0); IMMATURE GRAN ABSOLUTE AUTO 0.14 K/mm3 (0.00-0.05); IMMATURE GRAN PERCENT AUTO 0.7 % (0.0-0.4); LYMPHOCYTES ABSOLUTE AUTO 3.7 K/mm3 (1.0-4.8); LYMPHOCYTES PERCENT AUTO 18.7 % (24.0-44.0); MEAN CORPUSCULAR HEMOGLOBIN 30.7 pg (28.0-32.0); MEAN CORPUSCULAR HGB CONC 32.4 g/dl (32.0-36.0); MEAN CORPUSCULAR VOLUME 94.9 fl (83.0-99.0); MEAN PLATELET VOLUME 9.7 fl (9.4-12.3); MONOCYTES ABSOLUTE AUTO 1.1 K/mm3 (0.0-0.8); MONOCYTES PERCENT AUTO 5.8 % (0.0-8.0); NEUTROPHILS ABSOLUTE AUTO 14.4 K/mm3 (1.8-7.7); NEUTROPHILS PERCENT AUTO 73.8 % (41.0-71.0); RED BLOOD CELL COUNT 4.49 M/mm3 (4.10-5.30); WHITE BLOOD CELL COUNT,WBC 19.52 K/mm3 (3.9-11.3)
[2024-01-14 16:40] LABS: PLATELET COUNT,PLT 369 K/mm3 (150-400)
[2024-01-14 16:56] LABS: A/G RATIO 0.8 (1-2); ALBUMIN 3.2 g/dl (3.4-5.0); ANION GAP 13.5 (5-15); BILIRUBIN TOTAL 0.3 mg/dL (0.2-1.0); BUN/CREATININE RATIO 13.6 (14-18); CALCIUM 9.1 mg/dL (8.5-10.1); CREATININE 1.1 mg/dL (0.55-1.02); EST CRCL DRUG DOSING (CG) 65.75 mL/min; MAGNESIUM 1.6 mg/dL (1.8-2.4); POTASSIUM,K 3.5 mEq/L (3.5-5.1); PROTEIN TOTAL,TP 7.4 g/dl (6.4-8.2); TSH 1.552 uIU/mL (0.358-3.74)
[2024-01-14 17:26] LABS: APPEARANCE,URINE CLEAR (Clear); BILIRUBIN,URINE NEGATIVE (Negative); COLOR,URINE YELLOW (Yellow); GLUCOSE,URINE NEGATIVE (Negative); KETONES,URINE NEGATIVE (Negative); LEUKOCYTE ESTERASE,URINE NEGATIVE (Negative); NITRITE,URINE NEGATIVE (Negative); OCCULT BLOOD,URINE NEGATIVE (Negative); PROTEIN,URINE NEGATIVE (Negative); UROBILINOGEN,URINE 0.2 (0.2-1.0)
[2024-01-14 19:37] VITALS: BP 130/84; PULSE 80
== END 2024-01-14 19:37 | disposition home or self-care (01) ==
LOC: JD.ED 16:08
DX: R00.2 Palpitations (principal); R20.2 Paresthesia of skin; D72.829 Elevated white blood cell count, unspecified; I10 Essential (primary) hypertension; E66.9 Obesity, unspecified; Z86.16 Personal history of COVID-19; Z90.49 Acquired absence of other specified parts of digestive tract; Z79.899 Other long term (current) drug therapy; Z88.8 Allergy status to other drugs, medicaments and biological substances; Z91.09 Other allergy status, other than to drugs and biological substances; Z68.39 Body mass index [BMI] 39.0-39.9, adult
CPT/HCPCS: 36415; 71045; 71045-26; 80053; 81003; 81025; 83735; 84443; 85025; 93005; 93010; 93246; 99282; 99285